=== PATIENT | female | born 1935 | race Caucasian/White ===

== ENCOUNTER 2016-10-16 16:44 | Emergency (ER) | payer MEDICARE, OTHER ==
[~2016-10-16] VITALS: Ht 152.4 cm; Wt 61.7 kg
[~2016-10-16 16:44] MED LIST: AMLODIPINE BESYL5 M1 PO; AMLODIPINE5 MG PO; CLONIDINE HCL0.1 M1 PO; FLAGYL250 MG PO; GLUCOVANCE 5 MG1 TAB PO; JANUVIA100 MG PO; JANUVIA50 MG PO; LANTUS INS100 UNITS/ SUBQ; LEVAQUIN250 MG PO; LEVAQUIN500 MG PO; LISINOPRIL40 M1 PO; LISINOPRIL40 MG PO; LOMOTIL 0.025 M1 TA1 PO; MECLIZINE HCL25 M2 PO; METFORMIN500 MG PO; MOTRIN400 MG PO; NEURONTIN100 MG PO; NEXUIM; NORVASC5 MG PO; PRILOSEC40 MG PO; ROCEPHIN1 G1 IV; SIMVASTATIN20 M1 PO; SULFAMETH/TRIME1 TA1 PO; ZESTRIL30 MG PO; ZOCOR20 MG PO; [UNRECOGNIZED DRUG - REMARK]; [UNRECOGNIZED DRUG - REMARK]
[2016-10-16 17:10] VITALS: BP 153/55
--- NOTE | 2016-10-16 17:31 | NUR ---
PT TO BED 5 AT THIS TIME.
--- NOTE | 2016-10-16 17:35 | NUR ---
81/M BIB [facility] FOR C/O DYSURIA X 5 DAYS. HX OF DM, HTN, UNSTEADY GAIT, HARD OF HEARING. RX INSULIN. URINE GIVEN.
--- NOTE | 2016-10-16 17:39 | NUR ---
Patient being evaluated by physician at bedside.
[2016-10-16 18:30] VITALS: BP 149/58
--- NOTE | 2016-10-16 18:30 | NUR ---
Patient discharged with v/s stable. Written and verbal after care instructions given and explained. Patient alert, oriented and PT AND [facility] verbalized understanding of instructions. Ambulatory with steady gait. All questions addressed prior to discharge. ID band removed. Patient advised to follow up with PMD. Rx of BACTRIM given. Patient educated on indication of medication including possible reaction and side effects. Opportunity to ask questions provided and answered.
[2016-10-23] MEDS ORDERED: LEVAQUIN750 MG PO (08:18)
== END 2016-10-16 18:30 | disposition home or self-care (01) ==
LOC: MED 16:49
DX: N39.0 Urinary tract infection, site not specified (principal); I12.0 Hypertensive chronic kidney disease with stage 5 chronic kidney disease or end stage renal disease; N18.6 End stage renal disease; E11.9 Type 2 diabetes mellitus without complications; Z88.5 Allergy status to narcotic agent; Z79.899 Other long term (current) drug therapy

== ENCOUNTER 2016-10-21 14:51 | Inpatient (IN) | payer OTHER, MEDICARE ==
[~2016-10-21] VITALS: Ht 149.9 cm; Wt 63.5 kg
[~2016-10-21 14:51] MED LIST changes: +AMLO5TAB4 PO; -AMLODIPINE BESYL5 M1 PO; -AMLODIPINE5 MG PO; +CLON0.1T15 PO; -CLONIDINE HCL0.1 M1 PO; -FLAGYL250 MG PO; -GLUCOVANCE 5 MG1 TAB PO; -JANUVIA100 MG PO; -JANUVIA50 MG PO; -LANTUS INS100 UNITS/ SUBQ; -LEVAQUIN250 MG PO; -LEVAQUIN500 MG PO; +LEVO500T6 PO; +LISI30TA6 PO; -LISINOPRIL40 M1 PO; -LISINOPRIL40 MG PO; -LOMOTIL 0.025 M1 TA1 PO; -MECLIZINE HCL25 M2 PO; -METFORMIN500 MG PO; -MOTRIN400 MG PO; -NEURONTIN100 MG PO; -NEXUIM; -NORVASC5 MG PO; -PRILOSEC40 MG PO; -ROCEPHIN1 G1 IV; +SIMV20TA1 PO; -SIMVASTATIN20 M1 PO; +SITA50TA3 PO; -SULFAMETH/TRIME1 TA1 PO; -ZESTRIL30 MG PO; -ZOCOR20 MG PO; -[UNRECOGNIZED DRUG - REMARK]; -[UNRECOGNIZED DRUG - REMARK]
[2016-10-21 15:18] VITALS: BP 129/51
--- NOTE | 2016-10-21 16:17 | NUR ---
Patient taken to bed 07 via wheelchair per family member.
--- NOTE | 2016-10-21 16:23 | NUR ---
Dr. Garzon evaluating patient at bedside.
[2016-10-21] MEDS ORDERED: ONDANSETRON 4 MG ODT PO ONE (16:30)
[2016-10-21] MEDS ORDERED: NACL 0.9% 1,000 ML IV ONE (16:30)
--- NOTE | 2016-10-21 16:34 | NUR ---
XRAY at bedside.
--- NOTE | 2016-10-21 16:40 | NUR ---
X-Ray at bedside.
[2016-10-21 16:50] LABS: BASOPHILS # (AUTO) 0.4 K/uL (0.00-0.22); BASOPHILS % (AUTO) 4.3 % (0.0-2.0); EOSINOPHILS # (AUTO) 0.2 K/uL (0-0.4); HEMATOCRIT 34.8 % (36-48); HEMOGLOBIN 10.7 g/dL (12.0-16.0); LYMPHOCYTES # (AUTO) 1.3 K/uL (2.5-16.5); LYMPHOCYTES % (AUTO) 14.4 % (20.5-51.1); MEAN CORPUSCULAR HEMOGLOBIN 27 pg (27-31); MEAN CORPUSCULAR HGB CONC 31 g/dL (33-37); MEAN CORPUSCULAR VOLUME 89 fL (80-94); MONOCYTES # (AUTO) 0.4 K/uL (0.8-1.0); MONOCYTES % (AUTO) 3.8 % (1.7-9.3); NEUTROPHILS % (AUTO) 75.5 % (42.2-75.2); PLATELET COUNT (AUTO) 202 K/uL (140-450); RED BLOOD CELL COUNT(AUTO) 3.89 MIL/uL (4.20-5.40); RED CELL DISTRIBUTION WIDTH 13.3 % (11.6-13.7); WHITE BLOOD COUNT (AUTO) 9.3 K/uL (4.8-10.8)
[2016-10-21 17:10] LABS: INR 1.1 (0.8-1.2); PROTHROMBIN TIME 10.4 secs (10.8-13.4)
[2016-10-21 17:12] LABS: ALANINE AMINOTRANSFERASE 19 U/L (12-78); ALBUMIN 3.8 g/dL (3.4-5.0); ALKALINE PHOSPHATASE 71 U/L (46-116); ANION GAP 13.9 (8-16); ASPARTATE AMINOTRANSFERASE 15 U/L (15-37); CALCIUM 9.2 mg/dL (8.5-10.1); CARBON DIOXIDE 25.9 mmol/L (21-32); CHLORIDE 102 mmol/L (98-107); CREATININE 1.5 mg/dL (0.6-1.3); GLUCOSE 223 mg/dL (74-106); POTASSIUM 5.8 mmol/L (3.5-5.1); SODIUM SERUM 136 mmol/L (136-145); TOTAL BILIRUBIN 0.5 mg/dL (0.0-1.0); TOTAL PROTEIN, SERUM 7.6 g/dL (6.4-8.2); UREA NITROGEN, BLOOD 24 mg/dL (7-18)
[2016-10-21] MEDS ORDERED: cefTRIAXone 1,000 MG VIAL ONE (17:12)
[2016-10-21 17:15] LABS: CREATINE KINASE MB 0.6 ng/mL (0-3.6)
[2016-10-21] MEDS ORDERED: SODIUM POLYSTYRENE 15 GM/60 ML UDBTL PO ONE (17:20)
[2016-10-21 17:22] LABS: LACTIC ACID 1.9 mmol/L (0.4-2.0)
[2016-10-21] MEDS: NACL 0.9% 1,000 ML IV SCH (17:27)
[2016-10-21] MEDS ORDERED: DEXTROSE 50% 50 ML SYR IVP PRN (17:30)
[2016-10-21] MEDS ORDERED: ONDANSETRON 4 MG/2 ML VIAL IVP PRN (17:30)
[2016-10-21] MEDS ORDERED: ALBUTEROL 0.083% 2.5 MG/3 ML NEBU IH PRN (17:30)
[2016-10-21] MEDS ORDERED: HYDROcodone/APAP 5/325 MG 1 TAB TAB PO PRN (17:30)
--- NOTE | 2016-10-21 17:33 | NUR ---
Patient appears to be resting comfortably in bed. Vital Signs within normal limits. Respirations even and unlabored.
--- NOTE | 2016-10-21 17:39 | NUR ---
Patient will be admitted to care of Dr. Mejia. Admited to TELE. Will go to room 121-B. Belongings list completed. Report to Marleni LAGUNAS.
--- NOTE | 2016-10-21 17:56 | NUR ---
Patient being taken to TELE via gurney per tech/nurse.
--- NOTE | 2016-10-21 18:06 | NUR ---
RECEIVED PT ON UNIT FROM ER VIA CYNTHIA, PT IS A/OX4, AMBULATES WITH ASSIST, SKIN IS INTACT, IV IS ON RT FA, PATENT AND INTACT, NO S/S OF RESPIRATORY DISTRESS OR DISCOMFORT NOTED, FALL/SAFETY PRECAUTIONS IN PLACE, ORIENTED PT TO ROOM, CALL LIGHT WITHIN REACH, WILL CONTINUE TO MONITOR.
[2016-10-21 19:08] VITALS: BP 164/65
--- NOTE | 2016-10-21 19:20 | NUR ---
ENDORSED PT TO JANNETH ROBB. FOR CONTINUITY OF CARE, PT STABLE AT THIS TIME.
--- NOTE | 2016-10-21 19:25 | NUR ---
RECEIVED FROM AM RN IN BED. NEWLY ADMITTED PT. DAUGHTER AT BEDSIDE. NO COMPLAINTS DONE AT THIS TIME. AFEBRILE. ABLE TO VERBALIZE NEEDS WELL. MEDICAL SURGICAL PT. DX. PNA. IVF SITE TO LFA#20 WITH 100 ML OF NS PER HOUR. PATENT AND NO INFILTRATION NOTED. CALL LIGHT WITH IN REACH. RE-ORIENTED TO CALL LIGHT USE. BED ALARM ON AND CARE PLAN FOR THE NIGHT DISCUSSED WITH DAUGHTER AND PT. ENCOURAGED TO CALL FOR ANY HELP SHE MAY NEED. "OK". BILATERAL SEQUENTIALS IN PLACE.
[2016-10-21] MEDS: BLOOD GLUCOSE MONITORING 1 DEV DEV FS SCH (20:42)
[2016-10-21] MEDS: AZITHROMYCIN 500 MG in DEXTROSE 5% 250 ML IV SCH (20:44)
[2016-10-21] MEDS: INSULIN LISPRO SLIDING SCALE 100 UNITS/ML VIAL SUBQ PRN (20:48)
--- NOTE | 2016-10-21 20:56 | NUR ---
ZITHROMAX IVP INFUSED ORDERED. HUMALOG INSULIN COVERAGE 2 UNITS GIVEN FOR 166 MG/DL OF BLOOD SUGAR RESULT PER FINGERSTICK. A/O X 4. CLEAR SPEECH. NO COMPLAINTS DONE. RE-ORIENTED TO CALL LIGHT USE FOR EMETERIO HELP SHE MAY NEED OR IF IN PAIN.
[2016-10-21 23:06] VITALS: BP 135/64
--- NOTE | 2016-10-21 23:52 | NUR ---
MRSA NARES SWAB TAKEN AND SENT TO LAB FOR PROCESSING. NO COMPLAINTS DONE. CALL LIGHT WITH IN REACH. REMINDED TO COUGH IN SPUTUM CUP AND THAT WE NEED TO HAVE URINE SAMPLE TOO. AWARE. INFORMED DEVELOPMENT TECHNICAL LEAD THAT WE NEED URINE.
[2016-10-22] MEDS: NACL 0.9% 1,000 ML IV SCH ×3 (03:27→23:35)
--- NOTE | 2016-10-22 04:00 | NUR ---
ASSISTED BY CHIP SILO TENDER IN URINATING. PROVIDED WITH BEDPAN. NO COMPLAINTS DONE. NO SOB. AFEBRILE.
[2016-10-22] MEDS: BLOOD GLUCOSE MONITORING 1 DEV DEV FS SCH ×4 (05:54→21:20)
[2016-10-22] MEDS: INSULIN LISPRO SLIDING SCALE 100 UNITS/ML VIAL SUBQ PRN ×3 (05:56→21:27)
[2016-10-22 05:58] LABS: BASOPHILS # (AUTO) 0.1 K/uL (0.00-0.22); BASOPHILS % (AUTO) 1.4 % (0.0-2.0); EOSINOPHILS # (AUTO) 0.3 K/uL (0-0.4); EOSINOPHILS % (AUTO) 3.1 % (0.0-4.0); HEMOGLOBIN 10.7 g/dL (12.0-16.0); LYMPHOCYTES # (AUTO) 2.3 K/uL (2.5-16.5); LYMPHOCYTES % (AUTO) 28.7 % (20.5-51.1); MEAN CORPUSCULAR HEMOGLOBIN 29 pg (27-31); MEAN CORPUSCULAR HGB CONC 32 g/dL (33-37); MEAN CORPUSCULAR VOLUME 91 fL (80-94); MONOCYTES # (AUTO) 0.6 K/uL (0.8-1.0); MONOCYTES % (AUTO) 7.5 % (1.7-9.3); NEUTROPHILS # (AUTO) 4.8 K/uL (1.8-7.7); NEUTROPHILS % (AUTO) 59.3 % (42.2-75.2); PLATELET COUNT (AUTO) 198 K/uL (140-450); RED BLOOD CELL COUNT(AUTO) 3.64 MIL/uL (4.20-5.40); RED CELL DISTRIBUTION WIDTH 13.5 % (11.6-13.7); WHITE BLOOD COUNT (AUTO) 8.1 K/uL (4.8-10.8)
--- NOTE | 2016-10-22 06:40 | NUR ---
SLEPT WELL THIS SHIFT. NEEDS MET. VERBALIZES SIMPLE NEEDS IN [place]. NO SOB THIS SHIFT. NO COMPLAINTS DONE.
[2016-10-22 07:09] LABS: ANION GAP 12.2 (8-16); CALCIUM 8.4 mg/dL (8.5-10.1); CHLORIDE 106 mmol/L (98-107); GLUCOSE 153 mg/dL (74-106); POTASSIUM 4.2 mmol/L (3.5-5.1); SODIUM SERUM 141 mmol/L (136-145)
[2016-10-22 07:10] LABS: CREATININE 1.2 mg/dL (0.6-1.3); UREA NITROGEN, BLOOD 20 mg/dL (7-18)
--- NOTE | 2016-10-22 07:30 | NUR ---
RECEIVED REPORT FROM NIGHT NURSE. PT AOX4, ABLE TO VERBALIZE NEEDS. NO CP, SOB OR S/S OF ACUTE DISTRESS. INITIAL ASSESSMENT COMPLETED. PT REMINDED TO USE THE CALL LIGHT TO CALL TO USE BEDPAN TO COLLECT URINE SAMPLE AND ALSO TO CALL TO COLLECT FOR SPUTUM SAMPLE. IV ACCESS, PATENT AND INTACT. IVF INFUSING WELL. DISCUSSED AND REVIEWED PLAN OF CARE WITH PT. PT VERBALIZES UNDERSTANDING. SAFETY MEASURES ENSURED. CALL LIGHT WITHIN REACH. WILL CONTINUE TO MONITOR.
--- NOTE | 2016-10-22 07:33 | NUR ---
ENDORSED TO THE NEXT RN FOR CONTINUITY OF CARE AWAKE AND ALERT.
[2016-10-22 08:00] VITALS: BP 124/61
[2016-10-22] MEDS: ENOXAPARIN 30 MG/0.3 ML SYR SUBQ SCH (09:23)
--- NOTE | 2016-10-22 09:28 | NUR ---
ADMINISTERED MEDICATION WITH EDUCATION, PT VERBALIZES UNDERSTANDING. PT TOLERATED WELL. IVF INFUSING WELL. ASSISTED PT TO BEDPAN. SAFETY MEASURES ENSURED. WILL CONTINUE TO MONITOR.
--- NOTE | 2016-10-22 09:40 | NUR ---
CM NOTE INITIAL REVIEW SENT TO [facility] FAX# [phone] PH# KELLI [phone]
--- NOTE | 2016-10-22 10:25 | NUR ---
PATIENT HAS BEEN SCREENED AND CATEGORIZED HIGH NUTRITION RISK. PATIENT WILL BE SEEN WITHIN 1-2 DAYS OF ADMISSION. 10/22/16-10/23/[address]
--- NOTE | 2016-10-22 12:30 | NUR ---
MEDICATION ADMINISTERED WITH EDUCATION, PT VERBALIZES UNDERSTANDING. PT TOLERATED MEDS WELL. IVF INFUSING WELL. PT EATING INDEPENDENTLY IN HIGH FOWLERS. ALL NEEDS MET. CALL LIGHT WITHIN REACH. WILL CONTINUE TO MONITOR.
[2016-10-22 13:15] LABS: BILIRUBIN,URINE NEGATIVE (NEGATIVE); BLOOD, URINE NEGATIVE (NEGATIVE); COLOR,URINE YELLOW (YELLOW); LEUKOCYTE ESTERASE ,URINE NEGATIVE (NEGATIVE); PH,URINE 5.5 (5.0-9.0); PROTEIN,URINE NEGATIVE (NEGATIVE); UGLUCOSE NEGATIVE (NEGATIVE); UROBILINOGEN,URINE 0.2 EU/dL (0.2 - 1)
[2016-10-22 13:23] LABS: APPEARANCE,URINE SLIGHTLY HAZY (CLEAR); NITRITE, URINE POSITIVE (NEGATIVE); RBC,URINE 0-5 (RARE) /HPF (0-5); WBC,URINE 0-5 (RARE) /HPF (0-5)
[2016-10-22 13:24] LABS: BACTERIA,URINE 1+ /HPF (None Seen)
--- NOTE | 2016-10-22 15:26 | NUR ---
10/22/16 RD INITIAL ASSESSMENT COMPLETED PLEASE REFER TO NUTRITION ASSESSMENT UNDER CARE ACTIVITY FOR ESTIMATED NUTRITIONAL NEEDS. 1. CONTINUE 60 GM CONSISTENT CARBOHYDRATE DIET 2. RD TO FOLLOW-UP 3-5 DAYS; MODERATE RISK ROBINA FOWLER RD
[2016-10-22 16:00] VITALS: BP 114/43
[2016-10-22] MEDS: ACETAMINOPHEN 325 MG TAB PO PRN (17:04)
--- NOTE | 2016-10-22 17:04 | NUR ---
MEDICATIONS ADMINISTERED WITH EDUCATION. PT VERBALIZES UNDERSTANDING. IVF INFUSING WELL. ALL NEEDS MET. SAFETY MEASURES ENSURED. WILL CONTINUE TO MONITOR.
[2016-10-22] MEDS: AZITHROMYCIN 500 MG in DEXTROSE 5% 250 ML IV SCH (18:19)
--- NOTE | 2016-10-22 19:30 | NUR ---
RECEIVED REPORT FROM DAY RN AT BEDSIDE, PATIENT IS AAO X4 RESTING IN BED WITH FAMILY AT BEDSIDE, ON ROOM AIR, NO SOB OR SIGN OF DISTRESS AT THIS TIME, IV TO LEFT FOREARM PATENT AND INTACT WITH IVF INFUSING WELL. SKIN INTACT, DISCUSSED PLAN OF CARE WITH PATIENT , PATIENT VERBALIZED UNDERSTANDING, SAFETY MEASURES CHECKED, CALL LIGHT WITHIN REACH. WILL CONTINUE TO MONITOR.
--- NOTE | 2016-10-22 19:40 | NUR ---
ENDORSED PLAN OF CARE TO TEA ROOM MANAGER NURSE. CONDITION STABLE.
--- NOTE | 2016-10-22 23:30 | NUR ---
PATIENT PUSHED CALL LIGHT STATING SHE "DIDNT FEEL RIGHT" PATIENT STATED SHE FELT SWEATY AND HOT, CHECKED BLOOD SUGAR WAS 36, GAVE PATIENT D50 PER MD ORDER AND TWO JUICE BOXES. PATIENT ALERT AND RESPONSIVE. WILL CONTINUE TO MONITOR AND RE CHECK BLOOD SUGAR.
--- NOTE | 2016-10-22 23:50 | NUR ---
RE CHECK BS, INCREASED TO 208, PATIENT RESTING COMFORTABLE IN BED, WILL CONTINUE TO MONITOR
[2016-10-23] VITALS: BP 126/55
--- NOTE | 2016-10-23 00:10 | NUR ---
VITAL SIGNS STABLE, NO SOB OR SIGN OF DISTRESS, CALL LIGHT WITHIN REACH. WILL CONTINUE TO MONITOR.
--- NOTE | 2016-10-23 02:15 | NUR ---
PATIENT SLEEPING COMFORTABLE, NO SOB OR SIGN OF DISTRESS AT THIS TIME, CALL LIGHT WITHIN REACH. WILL CONTINUE TO MONITOR.
--- NOTE | 2016-10-23 04:30 | NUR ---
PATIENT SLEEPING, NO SIGN OF DISTRESS, CALL LIGHT WITHIN REACH. WILL CONTINUE TO MONITOR.
--- NOTE | 2016-10-23 06:30 | NUR ---
BS CHECK 175, PATIENT AGREED TO NO INSULIN, PATIENT STATED SHE "DID NOT WANT IT TO GO DOWN AGAIN."
[2016-10-23] MEDS: BLOOD GLUCOSE MONITORING 1 DEV DEV FS SCH ×3 (06:42→17:19)
--- NOTE | 2016-10-23 07:30 | NUR ---
ENDORSED PATIENT TO DAY RN AT BEDSIDE, PATIENT IN STABLE CONDITION
--- NOTE | 2016-10-23 07:31 | NUR ---
RECEIVED REPORT FROM NIGHT NURSE. PT AOX4, ABLE TO VERBALIZE NEEDS, HARD AT HEARING. NO CP, SOB OR S/S OF ACUTE DISTRESS. ASSISTED PT TO BEDPAN, PT TOLERATED WELL. DISCUSSED AND REVIEWED PLAN OF CARE WITH PT, PT VERBALIZES UNDERSTANDING. IV ACCESS ASYMPTOMATIC, PATENT AND INTACT. IVF INFUSING WELL. SAFETY MEASURES ENSURED. CALL LIGHT WITHIN REACH WILL CONTINUE TO MONITOR.
[2016-10-23 08:00] VITALS: BP 142/58
[2016-10-23] MEDS ORDERED: LEVO750T2 PO (08:18)
[2016-10-23] MEDS: ENOXAPARIN 30 MG/0.3 ML SYR SUBQ SCH (08:48)
--- NOTE | 2016-10-23 08:51 | NUR ---
LOVENOX ADMINISTERED WITH EDUCATION, PT VERBALIZES UNDERSTANDING. PT TOLERATED WELL. CONDITION STABLE. ALL NEEDS MET. SAFETY MEASURES ENSURED. CALL LIGHT WITHIN REACH. WILL CONTINUE TO MONITOR. PT NOTIFIED OF DISCHARGE TODAY, PT STATED THAT HER CAREGIVER CAN PICK HER UP AT 1900. ASKED IF ANYONE ELSE CAN PICK HER UP EARLIER, PT STATED NO. WILL CALL PT'S SEAM RUBBER TO SEE FOR EARLIER DISCHARGE.
--- NOTE | 2016-10-23 08:56 | NUR ---
ASSISTED PT TO RESTROOM. PT ABLE TO AMBULATE WELL WITH MINIMUM ASSISTANCE. PT TOLERATED WELL. PT'S BED LINEN CHANGED. SAFETY MEASURES ENSURED. CALL LIGHT WITHIN REACH. WILL CONTINUE TO MONITOR.
--- NOTE | 2016-10-23 09:00 | NUR ---
CALLED TERESA ROSEN, PT'S DAUGHTER'S NUMBER REGARDING DISCHARGE. NO ANSWER, NO VOICEMAIL. WILL CONTINUE TO CALL.
[2016-10-23] MEDS: NACL 0.9% 1,000 ML IV SCH (09:27)
[2016-10-23 09:32] VITALS: BP 142/58
--- NOTE | 2016-10-23 09:48 | NUR ---
CM NOTE CONCURRENT REVIEW SENT TO [facility] FAX# [phone] PH# KELLI [phone]
--- NOTE | 2016-10-23 10:49 | NUR ---
CALLED TERESA ROSEN, PT'S DAUGHTER'S NUMBER AGAIN REGARDING DISCHARGE. NO ANSWER, NO VOICEMAIL. WILL CONTINUE TO CALL. ASKED PT FOR ANOTHER NUMBER OF DAUGHTER. PT STATED THAT SHE HAS ALREADY TALKED TO DAUGHTER, STATING THAT SHE WILL BE PICKED UP BY HER DAUGHTER AT 1900. ASKED PT IF ANYONE ELSE CAN PICK HER UP FOR DISCHARGE. PT STATED "NO, EVERYONE IS WORKING." WILL CONTINUE TO FOLLOW UP. CONDITION STABLE. IVF INFUSING WELL. SAFETY MEASURES ENSURED. WILL CONTINUE TO MONITOR.
--- NOTE | 2016-10-23 12:00 | NUR ---
PT EATING INDEPENDENTLY. ALL NEEDS MET. IVF INFUSING WELL. SAFETY MEASURES ENSURED. CALL LIGHT WITHIN REACH. WILL CONTINUE TO MONITOR.
[2016-10-23] MEDS: INSULIN LISPRO SLIDING SCALE 100 UNITS/ML VIAL SUBQ PRN ×2 (12:15→17:17)
[2016-10-23] MEDS: ACETAMINOPHEN 325 MG TAB PO PRN (15:22)
[2016-10-23 16:00] VITALS: BP 142/66
--- NOTE | 2016-10-23 16:00 | NUR ---
CONDITION STABLE. ALL NEEDS MET. SAFETY MEASURES ENSURED.
--- NOTE | 2016-10-23 16:30 | NUR ---
RECEIVED CALL FROM PT'S DAUGHTER STATING THAT SHE WILL BE ABLE TO COLLECTOR OF INTERNAL REVENUE PT AT 1830.
--- NOTE | 2016-10-23 17:00 | NUR ---
DUE MEDICATIONS GIVEN WITH EDUCATION. PT VERBALIZES UNDERSTANDING. PT TOLERATED WELL. IVF INFUSING WELL. SAFETY MEASURES ENSURED. ALL NEEDS MET. WILL CONTINUE TO MONITOR.
--- NOTE | 2016-10-23 18:30 | NUR ---
DISCUSSED AND REVIEWED DISCHARGE INSTRUCTIONS WITH PT. PT VERBALIZES UNDERSTANDING. BELONGINGS CHECKED. IV ACCESS REMOVED, CANNULA INTACT. PT TOLERATED WELL. CONDITION STABLE. ALL NEEDS MET.
--- NOTE | 2016-10-23 19:25 | NUR ---
PT DISCHARGED THROUGH WHEELCHAIR BY [employer] LAUNCH COMMANDER, ACCOMPANIED BY PT'S DAUGHTER. CONDITION STABLE.
== END 2016-10-23 19:25 | disposition home or self-care (01) | DRG 139 ==
LOC: MED 14:51 → MTU 17:36
PROVIDERS: ADMIT Hospitalist; ATTEND Hospitalist
DX: J18.9 Pneumonia, unspecified organism (principal); N18.6 End stage renal disease; E11.22 Type 2 diabetes mellitus with diabetic chronic kidney disease; I12.0 Hypertensive chronic kidney disease with stage 5 chronic kidney disease or end stage renal disease; E86.0 Dehydration; E87.5 Hyperkalemia; E78.00 Pure hypercholesterolemia, unspecified; E78.5 Hyperlipidemia, unspecified; Z88.5 Allergy status to narcotic agent; Z79.899 Other long term (current) drug therapy; Z98.51 Tubal ligation status; Z90.710 Acquired absence of both cervix and uterus; Z90.49 Acquired absence of other specified parts of digestive tract
CPT/HCPCS: 36415; 71010; 80048; 80053; 81001; 82550; 82553; 82948; 83605; 83735; 84484; 85025; 85610; 85730; 87040; 87081; 87086; 93005; 99285; J0456; J0696; J1650; J1815; J7030; J7060; S0119

== ENCOUNTER 2017-06-06 17:33 | Inpatient (IN) | payer OTHER, MEDICARE ==
[~2017-06-06] VITALS: Ht 152.4 cm; Wt 64.4 kg
[~2017-06-06 17:33] MED LIST changes: -LEVO500T6 PO; +LEVO750T2 PO
[2017-06-06 17:39] VITALS: BP 149/85
--- NOTE | 2017-06-06 17:42 | NUR ---
PT AA&OX4 AT THIS TIME. STEADY GAIT. RR EVEN AND UNLABORED. PT TO LOBBY AWAITING OPEN BED AT THIS TIME.
[2017-06-06] MEDS ORDERED: NACL 0.9% 500 ML IV ONE (17:57)
[2017-06-06] MEDS ORDERED: KETOROLAC 30 MG/ML VIAL IVP ONE (18:00)
[2017-06-06] MEDS ORDERED: ONDANSETRON 4 MG/2 ML VIAL IVP ONE (18:00)
[2017-06-06 18:32] LABS: BASOPHILS # (AUTO) 0.3 K/uL (0.00-0.22); BASOPHILS % (AUTO) 3.9 % (0.0-2.0); EOSINOPHILS # (AUTO) 0.4 K/uL (0-0.4); EOSINOPHILS % (AUTO) 4.8 % (0.0-4.0); HEMATOCRIT 37.3 % (36-48); HEMOGLOBIN 12.4 g/dL (12.0-16.0); LYMPHOCYTES # (AUTO) 1.4 K/uL (2.5-16.5); LYMPHOCYTES % (AUTO) 16.6 % (20.5-51.1); MEAN CORPUSCULAR HEMOGLOBIN 30 pg (27-31); MEAN CORPUSCULAR HGB CONC 33 g/dL (33-37); MEAN CORPUSCULAR VOLUME 91 fL (80-94); MONOCYTES # (AUTO) 0.5 K/uL (0.8-1.0); MONOCYTES % (AUTO) 5.8 % (1.7-9.3); NEUTROPHILS # (AUTO) 5.9 K/uL (1.8-7.7); NEUTROPHILS % (AUTO) 68.9 % (42.2-75.2); PLATELET COUNT (AUTO) 253 K/uL (140-450); RED BLOOD CELL COUNT(AUTO) 4.09 MIL/uL (4.20-5.40); RED CELL DISTRIBUTION WIDTH 13.4 % (11.6-13.7); WHITE BLOOD COUNT (AUTO) 8.5 K/uL (4.8-10.8)
[2017-06-06 18:41] LABS: CARBON DIOXIDE 26.4 mmol/L (21-32); CHLORIDE 105 mmol/L (98-107); CREATININE 1.6 mg/dL (0.6-1.3); GLUCOSE 343 mg/dL (74-106); POTASSIUM 4.4 mmol/L (3.5-5.1); SODIUM SERUM 142 mmol/L (136-145); UREA NITROGEN, BLOOD 25 mg/dL (7-18)
[2017-06-06 18:47] LABS: ALBUMIN 3.8 g/dL (3.4-5.0); ASPARTATE AMINOTRANSFERASE 12 U/L (15-37); PROTHROMBIN TIME 10.1 secs (10.8-13.4); TOTAL BILIRUBIN 0.3 mg/dL (0.0-1.0)
--- NOTE | 2017-06-06 18:57 | NUR ---
Patient to bed 11.
--- NOTE | 2017-06-06 19:05 | NUR ---
81 Y/O F BIB FAMILY WITH THE COMPLAIN OF R FLANK/R ABD PAIN X 1WK. DAUGHTER STATES PT WAS SEEN BY PMD AND SENT HOME WITH CIPRO FOR UTI, BUT NOW PT HAS R FLANK PAIN. PT DENIES ANY FEVER OR CHILLS. ER MD MADE AWARE.
--- NOTE | 2017-06-06 19:20 | NUR ---
KUSUM TRACEY AT BEDSIDE EVALUATING PT.
[2017-06-06 20:22] LABS: APPEARANCE,URINE SL CLOUDY (CLEAR); BILIRUBIN,URINE NEGATIVE (NEGATIVE); BLOOD, URINE 2+ (NEGATIVE); COLOR,URINE YELLOW (YELLOW); LEUKOCYTE ESTERASE ,URINE 1+ (NEGATIVE); NITRITE, URINE NEGATIVE (NEGATIVE); UGLUCOSE 1+ (NEGATIVE)
[2017-06-06 20:32] LABS: RBC,URINE 11-20 (MOD) /HPF (0-5); WBC,URINE 80-100 /HPF (0-5)
[2017-06-06] MEDS ORDERED: NACL 0.9% 1,000 ML IV ONE (20:55)
[2017-06-06] MEDS ORDERED: cefTRIAXone 1,000 MG VIAL ONE (21:20)
--- NOTE | 2017-06-06 21:56 | NUR ---
PT TRANSFERRED TO FLOOR VIA WHEELCHAIR. ACCOMPANIED BY ME. NO S/S OF DISTRESS NOTED DURING TRANSPORT.
--- NOTE | 2017-06-06 21:59 | NUR ---
Patient will be admitted to care of DR FOX. Admited to MED SURG. Will go to room 110B. Belongings list completed. Report to JANNETH PRATER.
--- NOTE | 2017-06-06 22:00 | NUR ---
ADMITTED PATIENT TO THE MED-SURG UNIT, PATIENT AWAKE ALERT ORIENTED X3, NO S/S OF DISTRESS NOTED, RESPIRATION EVEN AND UNLABORED, IV PATENT AND INTACT, PLAN OF CARE DISCUSSED, PATIENT VERBALIZED, UNDERSTANDING, CALL LIGHT WITHIN REACH, SAFETY MEASURE ENSURED, WILL CONTINUE TO MONITOR.
[2017-06-06 22:05] VITALS: BP 144/68
[2017-06-06] MEDS ORDERED: ACETAMINOPHEN 325 MG TAB PO PRN (22:10)
[2017-06-06] MEDS ORDERED: ONDANSETRON 4 MG/2 ML VIAL IVP PRN (22:10)
--- NOTE | 2017-06-07 00:56 | NUR ---
PATIENT IS SLEEPING AT THIS TIME, NO S/S OF DISTRESS NOTED, RESPIRATION EVEN AND UNLABORED, CALL LIGHT WITHIN REACH, SAFETY MEASURE ENSURED, WILL CONTINUE TO MONITOR.
--- NOTE | 2017-06-07 02:19 | NUR ---
NO CHANGE IN CONDITION, PATIENT IS SLEEPING AT THIS TIME, RESPIRATION EVEN AND UNLABORED, CALL LIGHT WITHIN REACH, SAFETY MEASURE ENSURED, WILL CONTINUE TO MONITOR.
[2017-06-07] MEDS ORDERED: DEXTROSE 50% 50 ML SYR IVP PRN (03:10)
--- NOTE | 2017-06-07 04:22 | NUR ---
PATIENT IS SLEEPING AT THIS TIME, RESPIRATION EVEN AND UNLABORED, CALL LIGHT WITHIN REACH, SAFETY MEASURE ENSURED, WILL CONTINUE TO MONITOR.
--- NOTE | 2017-06-07 06:22 | NUR ---
NO CHANGE IN CONDITION, PATIENT IS SLEEPING AT THIS TIME, RESPIRATION EVEN AND UNLABORED, CALL LIGHT WITHIN REACH, SAFETY MEASURE ENSURED, WILL CONTINUE TO MONITOR.
[2017-06-07] MEDS: BLOOD GLUCOSE MONITORING 1 DEV DEV FS SCH ×4 (06:32→20:32)
[2017-06-07 07:07] LABS: BASOPHILS # (AUTO) 0.2 K/uL (0.00-0.22); BASOPHILS % (AUTO) 3.3 % (0.0-2.0); EOSINOPHILS # (AUTO) 0.6 K/uL (0-0.4); EOSINOPHILS % (AUTO) 7.7 % (0.0-4.0); HEMATOCRIT 31.8 % (36-48); HEMOGLOBIN 10.5 g/dL (12.0-16.0); LYMPHOCYTES # (AUTO) 1.9 K/uL (2.5-16.5); LYMPHOCYTES % (AUTO) 26.4 % (20.5-51.1); MEAN CORPUSCULAR HEMOGLOBIN 30 pg (27-31); MEAN CORPUSCULAR HGB CONC 33 g/dL (33-37); MEAN CORPUSCULAR VOLUME 91 fL (80-94); MONOCYTES # (AUTO) 0.5 K/uL (0.8-1.0); MONOCYTES % (AUTO) 6.5 % (1.7-9.3); NEUTROPHILS # (AUTO) 4.2 K/uL (1.8-7.7); NEUTROPHILS % (AUTO) 56.1 % (42.2-75.2); PLATELET COUNT (AUTO) 213 K/uL (140-450); RED BLOOD CELL COUNT(AUTO) 3.52 MIL/uL (4.20-5.40); RED CELL DISTRIBUTION WIDTH 13.4 % (11.6-13.7); WHITE BLOOD COUNT (AUTO) 7.4 K/uL (4.8-10.8)
--- NOTE | 2017-06-07 07:20 | NUR ---
ENDORSED PLAN OF CARE TO DAY RN, PATIENT RESTING IN BED, NO S/S OF DISTRESS, PATIENT IS IN STABLE CONDITION.
--- NOTE | 2017-06-07 07:36 | NUR ---
ENDORSEMENT RECEIVED FROM IT SECURITY ENGINEER NURSE. PATIENT IS SLEEPING COMFORTABLY. RESPIRATION EVEN, UNLABOR. SKIN DRY AND WARM. BED AT LOW POSITION. NO DISTRESS NOTED AT THIS TIME. CALL LIGHT WITHIN REACH. WILL CONTINUE TO MONITOR
[2017-06-07 08:00] VITALS: BP 143/60
--- NOTE | 2017-06-07 08:54 | NUR ---
PATIENT HAS BEEN SCREENED AND CATEGORIZED MODERATE NUTRITION RISK. PATIENT WILL BE SEEN WITHIN 3-5 DAYS OF ADMISSION. 06/09/17-06/11/[address]
[2017-06-07] MEDS: cloNIDine 0.1 MG TAB PO SCH ×5 (09:00→17:00)
[2017-06-07] MEDS: amLODIPine 5 MG TAB PO SCH (09:30)
[2017-06-07] MEDS: LISINOPRIL 10 MG TAB PO SCH (09:30)
[2017-06-07] MEDS: ENOXAPARIN 30 MG/0.3 ML SYR SUBQ SCH (09:39)
--- NOTE | 2017-06-07 10:20 | NUR ---
RECEIVED PT IN STABLE CONDITION FROM AM NURSE. AWAKE,ALERT AND ORIENTED X3, WITH PERIODS OF FORGETFULNESS. ON MED LYDIA. DAUGHTER AT BEDSIDE. HAS IVF INFUSING WELL ON THE LT AC#22. PLAN OF CARE DISCUSSED WITH PT/FAMILY. VERBALIZED UNDERSTANDING. INSTRUCTED TO USE CALL LIGHT IF NEED TO GET UP AND FOR ANY PROBLEM LIKE PAIN . BED ON LOW POSITION. WILL CONTINUE TO MONITOR. Addendum: 06/07/17 at 1933 by Gisell Cheng RN CANCEL ABOVE NOTES. CAREGIVER MISTAKE.
[2017-06-07] MEDS: NACL 0.9% 1,000 ML IV SCH (11:27)
--- NOTE | 2017-06-07 11:30 | NUR ---
PATIENT IS SLEEPING COMFORTABLY, EASILY AROUSABLE BY NAME. NO DISTRESS NOTED. DENIED PAIN AT THIS TIME. CALL LIGHT WITHIN REACH. WILL CONTINUE TO MONITOR
--- NOTE | 2017-06-07 13:03 | NUR ---
CM NOTE INITIAL REVIEW FAXED TO [facility] [phone] JUAN PH# [phone] KELLI PH# [phone]
--- NOTE | 2017-06-07 13:10 | NUR ---
PATIENT IS AWAKE, ALERT. RESPIRATION EVEN, UNLABOR. COMPLAINED OF BACK PAIN 11/28. WILL MEDICATE PER ORDER
[2017-06-07] MEDS: HYDROcodone/APAP 5/325 MG 1 TAB TAB PO PRN ×2 (13:29→20:36)
[2017-06-07 13:30] VITALS: BP 147/58
[2017-06-07 15:00] VITALS: BP 124/47
[2017-06-07 16:00] VITALS: BP 116/56
[2017-06-07] MEDS: INSULIN LISPRO SLIDING SCALE 100 UNITS/ML VIAL SUBQ PRN ×2 (17:20→20:33)
--- NOTE | 2017-06-07 18:30 | NUR ---
PATIENT IS AWAKE, ALERT, EATING DINNER. RESPIRATION EVEN, UNLABOR. DENIED PAIN AT THIS TIME. CALL LIGHT WITHIN REACH. IV INFUSING WELL.
--- NOTE | 2017-06-07 19:18 | NUR ---
ENDORSEMENT GIVEN TO THE DOLL WIGS HACKLER NURSE. PATIENT IS STABLE AT THIS TIME.
--- NOTE | 2017-06-07 19:20 | NUR ---
RECEIVED PT IN STABLE CONDITION FROM AM NURSE. AWAKE,ALERT AND ORIENTED X3, WITH PERIODS OF FORGETFULNESS. ON MED LYDIA. DAUGHTER AT BEDSIDE. HAS IVF INFUSING WELL ON THE LT AC#22. PLAN OF CARE DISCUSSED WITH PT/FAMILY. VERBALIZED UNDERSTANDING. INSTRUCTED TO USE CALL LIGHT IF NEED TO GET UP AND FOR ANY PROBLEM LIKE PAIN . BED ON LOW POSITION. WILL CONTINUE TO MONITOR.
--- NOTE | 2017-06-07 20:33 | NUR ---
BLOOD SUGAR WAS CHECKED RESULT 160. INSULIN COVERAGE GIVEN SUBQ. THEN PROVIDED WITH SOME SNACKS. WILL CONTINUE TO MONITOR.
[2017-06-07] MEDS ORDERED: SIMVASTATIN 20 MG TAB PO SCH (21:00)
--- NOTE | 2017-06-07 21:00 | NUR ---
PT ASSISTED UP TO BATHROOM. VOIDED WELL. BACK TO BED WITH NO DISCOMFORT NOTED.
--- NOTE | 2017-06-07 22:30 | NUR ---
MADE ROUNDS . PT IS ASLEEP. NO S/S OF DISCOMFORT. WILL CONTINUE TO MONITOR.
--- NOTE | 2017-06-07 23:05 | NUR ---
PT AWAKE, CALLED AND SAID TO CHECK HER BLOOD SUGAR FOR SHE FEEL IT IS LOW. BLOOD SUGAR IS ONLY 52. SO PT GIVEN SOME JUICE AND SANDWICH. WILL RECHECK BLOOD SUGAR LATER.
--- NOTE | 2017-06-08 00:25 | NUR ---
BLOOD SUGAR WAS RECHECKED RESULT 142. PT SAID SHE FEEL BETTER. INSTRUCTED PT TO CALL AGAIN IF SHE FEELS BS IS GOING DOWN. WILL CONTINUE TO MONITOR.
[2017-06-08 00:26] VITALS: BP 104/42
[2017-06-08] MEDS: NACL 0.9% 1,000 ML IV SCH ×3 (00:47→14:07)
--- NOTE | 2017-06-08 01:30 | NUR ---
MADE ROUNDS. PT IS ASLEEP AT THIS TIME. NO S/SF ANY DISCOMFORT NOTED.
--- NOTE | 2017-06-08 03:30 | NUR ---
SLEEPING WELL AT THIS TIME. NO S/S OF ANY DISCOMFORT NOTED.
[2017-06-08] MEDS: BLOOD GLUCOSE MONITORING 1 DEV DEV FS SCH ×3 (06:00→17:00)
[2017-06-08] MEDS: INSULIN LISPRO SLIDING SCALE 100 UNITS/ML VIAL SUBQ PRN ×2 (06:01→16:52)
--- NOTE | 2017-06-08 06:03 | NUR ---
BLOOD SUGAR THIS AM 238. INSULIN COVERAGE GIVEN SUBQ. JUICE PROVIDED. WILL CONTINUE TO MONITOR.
[2017-06-08 06:34] LABS: BASOPHILS # (AUTO) 0.3 K/uL (0.00-0.22); BASOPHILS % (AUTO) 3.1 % (0.0-2.0); EOSINOPHILS # (AUTO) 0.4 K/uL (0-0.4); EOSINOPHILS % (AUTO) 5.2 % (0.0-4.0); HEMATOCRIT 30.4 % (36-48); HEMOGLOBIN 9.9 g/dL (12.0-16.0); LYMPHOCYTES # (AUTO) 1.8 K/uL (2.5-16.5); LYMPHOCYTES % (AUTO) 21.8 % (20.5-51.1); MEAN CORPUSCULAR HEMOGLOBIN 30 pg (27-31); MEAN CORPUSCULAR HGB CONC 33 g/dL (33-37); MEAN CORPUSCULAR VOLUME 91 fL (80-94); MONOCYTES # (AUTO) 0.4 K/uL (0.8-1.0); MONOCYTES % (AUTO) 5.1 % (1.7-9.3); NEUTROPHILS # (AUTO) 5.4 K/uL (1.8-7.7); NEUTROPHILS % (AUTO) 64.8 % (42.2-75.2); PLATELET COUNT (AUTO) 201 K/uL (140-450); RED BLOOD CELL COUNT(AUTO) 3.34 MIL/uL (4.20-5.40); RED CELL DISTRIBUTION WIDTH 13.6 % (11.6-13.7); WHITE BLOOD COUNT (AUTO) 8.3 K/uL (4.8-10.8)
[2017-06-08 06:48] LABS: ANION GAP 10.6 (8-16); CARBON DIOXIDE 25.6 mmol/L (21-32); CHLORIDE 108 mmol/L (98-107); CREATININE 1.2 mg/dL (0.6-1.3); GLUCOSE 245 mg/dL (74-106); POTASSIUM 4.2 mmol/L (3.5-5.1); SODIUM SERUM 140 mmol/L (136-145); UREA NITROGEN, BLOOD 25 mg/dL (7-18)
--- NOTE | 2017-06-08 07:23 | NUR ---
ENDORSED PT IN STABLE CONDITION TO AM NURSE.
--- NOTE | 2017-06-08 07:24 | NUR ---
RECEIVED REPORT FROM WINDOW AND DOOR INSTALLER NURSE. PATIENT LYING DOWN IN BED SLEEPING, AROUSABLE BY VOICE. IN STABLE CONDITION. NO DISTRESS NOTED. RESPIRATIONS EVEN, UNLABORED, ON ROOM AIR. DENIES ANY PAIN AT THIS TIME. AAOX3, CALM, COOPERATIVE, FORGETFUL, SKIN COLOR APPROPRIATE TO ETHNICITY, WARM TO TOUCH. SKIN IS INTACT THROUGHOUT BODY. LUNGS CTA ON ALL LOBES. ABDOMEN SOFT, NON-DISTENDED. ABLE TO WALK TO BATHROOM AND BACK WITH ASSIST. IV SITE IS INTACT, PATENT, AND INFUSING IVF PER ORDERS. REVIEWED PLAN OF CARE WITH PATIENT. PATIENT VERBALIZED UNDERSTANDING. SAFETY MEASURES IN PLACE, CALL LIGHT WITHIN REACH. WILL CONTINUE TO MONITOR.
[2017-06-08 08:00] VITALS: BP 128/52
--- NOTE | 2017-06-08 08:33 | NUR ---
DR. CRAIG AT BEDSIDE REVIEWING PLAN OF CARE WITH PATIENT. WILL CONTINUE TO MONITOR.
[2017-06-08] MEDS: cloNIDine 0.1 MG TAB PO SCH ×3 (09:00→17:00)
[2017-06-08] MEDS: amLODIPine 5 MG TAB PO SCH (09:00)
[2017-06-08] MEDS: LISINOPRIL 10 MG TAB PO SCH (09:00)
[2017-06-08] MEDS: ENOXAPARIN 30 MG/0.3 ML SYR SUBQ SCH (09:44)
[2017-06-08] MEDS: HYDROcodone/APAP 5/325 MG 1 TAB TAB PO PRN (09:52)
--- NOTE | 2017-06-08 09:54 | NUR ---
PATIENT LYING IN BED WATCHING TV. NO DISTRESS NOTED. RESPIRATIONS EVEN, UNLABORED, ON ROOM AIR. IV SITE IS INTACT, PATENT, AND INFUSING IVF PER ORDERS. C/O OF LOWER BACK PAIN, MEDICATED WITH NORCO. OTHER SCHEDULED MEDICATIONS DUE GIVEN. SAFETY MEASURES IN PLACE, CALL LIGHT WITHIN REACH. WILL CONTINUE TO MONITOR.
[2017-06-08 12:00] VITALS: BP 141/67
--- NOTE | 2017-06-08 12:20 | NUR ---
PATIENT SITTING IN BED WITH LUNCH TRAY IN FRONT. NO DISTRESS NOTED. DENIES ANY PAIN AT THIS TIME. CONDITION UNCHANGED. SCHEDULED MEDICATIONS DUE GIVEN. SAFETY MEASURES IN PLACE, CALL LIGHT WITHIN REACH. WILL CONTINUE TO MONITOR.
[2017-06-08] MEDS ORDERED: CEPH500T PO (12:39)
--- NOTE | 2017-06-08 12:39 | NUR ---
FAXED CONCURRENT REVIEW TO [facility] [phone] PHONE NOVEMBER [phone]
--- NOTE | 2017-06-08 12:56 | NUR ---
PATIENT AMBULATED TO BATHROOM AND BACK TO BED INDEPENDENTLY. NO DISTRESS NOTED. WILL CONTINUE TO MONITOR.
--- NOTE | 2017-06-08 13:38 | NUR ---
PATIENT SLEEPING IN BED, AROUSABLE BY VOICE. NO DISTRESS NOTED. DENIES ANY PAIN. CONDITION UNCHANGED. SAFETY MEASURES IN PLACE, CALL LIGHT WITHIN REACH. WILL CONTINUE TO MONITOR.
--- NOTE | 2017-06-08 15:45 | NUR ---
PATIENT SITTING IN CHAIR WATCHING TV. NO DISTRESS NOTED. DENIES ANY PAIN. ABLE TO AMBULATE INDEPENDENTLY FROM BED TO CHAIR WITH A WALKER. CONDITION UNCHANGED. SAFETY MEASURES IN PLACE, CALL LIGHT WITHIN REACH, FALL PREVENTIONS IN PLACE. WILL CONTINUE TO MONITOR.
[2017-06-08 16:00] VITALS: BP 124/56
[2017-06-08 17:00] VITALS: BP 124/56
--- NOTE | 2017-06-08 17:01 | NUR ---
PATIENT SITTING IN BED WATCHING TV. NO DISTRESS NOTED. DENIES ANY PAIN. SCHEDULED MEDICATIONS DUE GIVEN. CONDITION UNCHANGED. PATIENT AWARE THAT SHE WILL BE GOING HOME TODAY. AWAITING FOR DAUGHTER TO PICK HER UP AFTER DAUGHTER GETS OFF WORK. SAFETY MEASURES IN PLACE, CALL LIGHT WITHIN REACH. WILL CONTINUE TO MONITOR
--- NOTE | 2017-06-08 17:20 | NUR ---
PATIENT AMBULATED TO BATHROOM AND BACK TO BED INDEPENDENTLY. SAFETY MEASURES IN PLACE. WILL CONTINUE TO MONITOR.
--- NOTE | 2017-06-08 18:32 | NUR ---
PROVIDED DISCHARGE INSTRUCTIONS/EDUCATION TO PATIENT, FOLLOW-UP VISIT WITH MD, NEW/CHANGED MEDICATIONS REGIMEN, DIET REGIMEN, AND DISEASE PROCESS OF UTI. PROVIDED DISCHARGE INSTRUCTIONS IN PATIENT'S PREFERRED LANGUAGE OF SCOTTISH. ANSWERED ALL OF PATIENT'S QUESTIONS REGARDING DISCHARGE AND FOLLOW UP. PATIENT VERBALIZED COMPLETE UNDERSTANDING. IV SITE REMOVED WITH MINIMAL BLOOD AND LUMEN COMPLETELY INTACT. ID BANDS REMOVED. ALL BELONGINGS WITH PATIENT. PATIENT GETTING DRESSED UP IN OWN CLOTHES, NO ASSISTANCE NEEDED. PATIENT AWAITING FOR DAUGHTER TO ARRIVE AT HOSPITAL TO TAKE PATIENT HOME VIA PRIVATE VEHICLE.
--- NOTE | 2017-06-08 18:55 | NUR ---
PATIENT'S DAUGHTER HERE ON [facility] UNIT TO TAKE PATIENT HOME. ESCORTED PATIENT DOWN TO LOBBY VIA WHEELCHAIR. PATIENT ABLE TO AMBULATE FROM WHEELCHAIR TO PRIVATE VEHICLE. PATIENT DISCHARGED HOME AT THIS TIME VIA PRIVATE VEHICLE IN STABLE CONDITION WITH DAUGHTER.
== END 2017-06-08 18:55 | disposition home or self-care (01) | DRG 463 ==
LOC: MED 17:33 → MTU 21:48
PROVIDERS: ADMIT Internal Medicine Pulmonary Disease; ATTEND Internal Medicine Pulmonary Disease
DX: N39.0 Urinary tract infection, site not specified (principal); I12.0 Hypertensive chronic kidney disease with stage 5 chronic kidney disease or end stage renal disease; E11.22 Type 2 diabetes mellitus with diabetic chronic kidney disease; N18.6 End stage renal disease; E66.9 Obesity, unspecified; J45.909 Unspecified asthma, uncomplicated; Z88.6 Allergy status to analgesic agent; Z68.27 Body mass index [BMI] 27.0-27.9, adult; Z99.2 Dependence on renal dialysis; Z90.49 Acquired absence of other specified parts of digestive tract; Z90.710 Acquired absence of both cervix and uterus
CPT/HCPCS: 36415; 80048; 80053; 81001; 82948; 83605; 83735; 85025; 85610; 85730; 87040; 87081; 87086; 96361; 96374; 96375; 99285; J0696; J1650; J1815; J1885; J2405; J7030; J7060

== ENCOUNTER 2017-09-04 13:10 | Emergency (ER) | payer OTHER, MEDICARE ==
[~2017-09-04] VITALS: Ht 154.9 cm; Wt 63.5 kg
[~2017-09-04 13:10] MED LIST changes: +CEPH500T PO; -LEVO750T2 PO
[2017-09-04 13:15] VITALS: BP 134/54
--- NOTE | 2017-09-04 15:37 | NUR ---
PT AMBULATED TO CHD
--- NOTE | 2017-09-04 15:44 | NUR ---
c/o persistant dysuria x 2 wk----fever pmd phoned in rx 5 days ago, last dose yesterday . DENIES N/V/D; SKIN IS PINK/WARM/DRY; AAOX4 WITH EVEN AND STEADY GAIT; LUNGS CLEAR BL; HR EVEN AND REGULAR; PT DENIES ANY CP, SOB, OR COUGH AT THIS TIME; PATIENT STATES PAIN OF 0/10 AT THIS TIME; ER MD MADE AWARE OF PT STATUS.
--- NOTE | 2017-09-04 16:25 | NUR ---
D RFOWER EVALUATING PT AT BEDSIDE
[2017-09-04] MEDS ORDERED: FLUCONAZOLE 100 MG TAB PO ONE (17:10)
[2017-09-04] MEDS ORDERED: hydrOXYzine HCL 10 MG TAB PO ONE (17:10)
--- NOTE | 2017-09-04 17:15 | NUR ---
ATARAX AND DIFLUCAN OUT OF STOCK IN ER, CALLED PIT FURNACE MELTER DON.
[2017-09-04] MEDS ORDERED: FLUCONAZOLE 100 MG TAB ONE (17:48)
--- NOTE | 2017-09-04 17:57 | NUR ---
DISABILITY SPECIALIST DON CAME IN AND SAID HE CAN NOT FIND ATARAX 10 MG PILL, HE CAN ONLY GET 25 MG PILL, PER , GIVE DIFLUCAN 100 MG ONLY, PT'S FAMILY VERBALZIED UNDERSTANDING.
[2017-09-04 18:13] VITALS: BP 144/59
--- NOTE | 2017-09-04 18:15 | NUR ---
Patient discharged with v/s stable. Written and verbal after care instructions given and explained. Patient alert, oriented and verbalized understanding of instructions. Ambulatory with steady gait. All questions addressed prior to discharge. ID band removed. Patient advised to follow up with PMD. Rx of PYRIDIUM AND GYNE-LOTRIMIN given. Patient educated on indication of medication including possible reaction and side effects. Opportunity to ask questions provided and answered.
== END 2017-09-04 18:15 | disposition home or self-care (01) ==
LOC: MED 13:10
DX: B37.3 Candidiasis of vulva and vagina (principal); J45.909 Unspecified asthma, uncomplicated; I12.0 Hypertensive chronic kidney disease with stage 5 chronic kidney disease or end stage renal disease; N18.6 End stage renal disease; Z88.5 Allergy status to narcotic agent
CPT/HCPCS: 81002; 82948; 99283

== ENCOUNTER 2018-01-07 15:47 | Emergency (ER) | payer OTHER, MEDICARE ==
[~2018-01-07] VITALS: Ht 149.9 cm; Wt 65.8 kg
[2018-01-07 15:53] VITALS: BP 169/77
--- NOTE | 2018-01-07 16:08 | NUR ---
AMBUALTES WITH SLOW STEADY GAIT WITH WALKER TO BED 7
--- NOTE | 2018-01-07 16:10 | NUR ---
BIB DAUGHTER FOR C/O NASUEA/VOMITING GREEN YELLOW PHLEGM X 4 DAYS, AND ONE EPISODE OF DIARRHEA TODAY. DENIES FEVER. ALSO REPORTS LUQ ABD PAIN 7/10, AND MILD DIZZINESS. HX: DM, HTN
--- NOTE | 2018-01-07 16:38 | NUR ---
Dr Brennan evaluating aao pt with daughter at bedside
[2018-01-07] MEDS ORDERED: ONDANSETRON 4 MG/2 ML VIAL IVP ONE (16:45)
--- NOTE | 2018-01-07 17:06 | NUR ---
Pt taken off the unit via [facility] for CT and XRAY
[2018-01-07 17:18] LABS: BASOPHILS # (AUTO) 0.1 K/uL (0.00-0.22); BASOPHILS % (AUTO) 0.8 % (0.0-2.0); EOSINOPHILS # (AUTO) 0.1 K/uL (0-0.4); EOSINOPHILS % (AUTO) 1.1 % (0.0-4.0); HEMATOCRIT 37.2 % (36-48); LYMPHOCYTES # (AUTO) 1.3 K/uL (2.5-16.5); LYMPHOCYTES % (AUTO) 15.5 % (20.5-51.1); MEAN CORPUSCULAR HEMOGLOBIN 29 pg (27-31); MEAN CORPUSCULAR HGB CONC 32 g/dL (33-37); MEAN CORPUSCULAR VOLUME 90.6 fL (80-94); MONOCYTES # (AUTO) 0.5 K/uL (0.8-1.0); MONOCYTES % (AUTO) 5.8 % (1.7-9.3); NEUTROPHILS # (AUTO) 6.4 K/uL (1.8-7.7); NEUTROPHILS % (AUTO) 76.8 % (42.2-75.2); PLATELET COUNT (AUTO) 208 K/uL (140-450); WHITE BLOOD COUNT (AUTO) 8.3 K/uL (4.8-10.8)
[2018-01-07 17:31] LABS: ANION GAP 27.3 (8-16); CHLORIDE 105 mmol/L (98-107); CREATININE 1.4 mg/dL (0.6-1.3); GLUCOSE 205 mg/dL (74-106); POTASSIUM 4.3 mmol/L (3.5-5.1); SODIUM SERUM 138 mmol/L (136-145); UREA NITROGEN, BLOOD 26 mg/dL (7-18)
[2018-01-07 17:45] LABS: ALBUMIN 3.8 g/dL (3.4-5.0); ASPARTATE AMINOTRANSFERASE 10 U/L (15-37); LIPASE 152 U/L (73-393); TOTAL BILIRUBIN 0.5 mg/dL (0.0-1.0)
--- NOTE | 2018-01-07 19:11 | NUR ---
REPORT GIVEN TO JANNETH CASTRO FOR CONTINUATINO OF CARE
--- NOTE | 2018-01-07 19:12 | NUR ---
PATIENT RESTING AT THIS TIME. NO SIGNS OF DISTRESS.
[2018-01-07 19:30] VITALS: BP 160/60
--- NOTE | 2018-01-07 19:30 | NUR ---
Patient discharged with v/s stable. Written and verbal after care instructions given and explained. Patient alert, oriented and verbalized understanding of instructions. Ambulatory with steady gait. All questions addressed prior to discharge. ID band removed. Patient advised to follow up with PMD. Rx of ZOFRAN 4 MG ODT given. Patient educated on indication of medication including possible reaction and side effects. Opportunity to ask questions provided and answered.
== END 2018-01-07 19:30 | disposition home or self-care (01) ==
LOC: MED 15:47
DX: E11.22 Type 2 diabetes mellitus with diabetic chronic kidney disease (principal); I12.0 Hypertensive chronic kidney disease with stage 5 chronic kidney disease or end stage renal disease; N18.6 End stage renal disease; N17.9 Acute kidney failure, unspecified; Z88.5 Allergy status to narcotic agent; J45.909 Unspecified asthma, uncomplicated
CPT/HCPCS: 36415; 71045; 74176; 80053; 81002; 83605; 83690; 84484; 85025; 93005; 96374; 99285; J2405

== ENCOUNTER 2018-06-04 14:56 | Emergency (ER) | payer MEDICARE, OTHER ==
[~2018-06-04] VITALS: Ht 162.6 cm; Wt 63.6 kg
[2018-06-04 15:04] VITALS: BP 145/59
--- NOTE | 2018-06-04 15:09 | NUR ---
pt ambulates w/ steady gait to the lobby w/ vss to wait for an available bed accompanied by daughter.
--- NOTE | 2018-06-04 16:28 | NUR ---
PT AMBULATES TO BED 9 AT THIS TIME ACCOMPANIED BY DAUGHTER
--- NOTE | 2018-06-04 16:32 | NUR ---
PATIENT PRESENTS TO ED WITH THE CHIEF C/O BURNING URINATION AND BLOOD IN URING. DAUGHTER STATES PT WAS HAVING SYMPTOMS OF BURNING URINATION SINCE LAST WEDNESDAY BUT PT STARTED HAVING BLOOD IN URINE SINCE YESTERDAY. PT WS TAKING CIPRO MEDS PER PCP. AFEBRILE. PT POINTS PAIN ON PERINEAL AREA 03/30. PT IS NAUSEATED. DENIES V/D AT THIS TIME; SKIN IS PINK/WARM/DRY; AAOX4 WITH NO CP, SOB, OR COUGH NOTED AT THIS TIME; VS: T 97.7 HR 66 SPO2 99 BP 166/56 RR 10. PATIENT POSITIONED FOR COMFORT; HOB ELEVATED; BEDRAILS UP X2; BED DOWN. ER MD MADE AWARE OF PT STATUS.
--- NOTE | 2018-06-04 16:46 | NUR ---
PT ENCOURAGED TO URINATE AND COLLECT UEINE SAMPLE.
[2018-06-04] MEDS ORDERED: KETOROLAC 60 MG/2 ML VIAL IM ONE (17:30)
--- NOTE | 2018-06-04 17:59 | NUR ---
Patient discharged with v/s stable. Written and verbal after care instructions given and explained. Patient alert, oriented and verbalized understanding of instructions. Ambulatory with steady gait. All questions addressed prior to discharge. ID band removed. Patient advised to follow up with PMD. Rx of MOTRIN, BACTRIM AND NORCO given. Patient educated on indication of medication including possible reaction and side effects. Opportunity to ask questions provided and answered.
[2018-06-04 18:00] VITALS: BP 164/59
== END 2018-06-04 17:59 | disposition home or self-care (01) ==
LOC: MED 14:56
DX: N39.0 Urinary tract infection, site not specified (principal); J45.909 Unspecified asthma, uncomplicated; F03.90 Unspecified dementia, unspecified severity, without behavioral disturbance, psychotic disturbance, mood disturbance, and anxiety; E11.22 Type 2 diabetes mellitus with diabetic chronic kidney disease; I12.0 Hypertensive chronic kidney disease with stage 5 chronic kidney disease or end stage renal disease; N18.6 End stage renal disease; Z88.5 Allergy status to narcotic agent; Z79.899 Other long term (current) drug therapy; Z90.49 Acquired absence of other specified parts of digestive tract; Z90.710 Acquired absence of both cervix and uterus
CPT/HCPCS: 81002; 87086; 96372; 99283; J1885

== ENCOUNTER 2018-06-12 20:59 | Emergency (ER) | payer MEDICARE, OTHER ==
[~2018-06-12] VITALS: Ht 149.9 cm; Wt 63.5 kg
[2018-06-12 21:07] VITALS: BP 139/48
--- NOTE | 2018-06-12 21:33 | NUR ---
PT GOING TO CT AT THIS TIME.
--- NOTE | 2018-06-12 22:01 | NUR ---
PT BIBA FOR FALL. PT STATES SHE FELL AND HIT CONCRETE FROM A STANDING POSITION, REPORTS PAIN AT 7/10. BRUISING AND SWELLING PRESENT ON BACK OF HEAD. PT IS AAOX4, COOPERATIVE, AND PEERLA. ER TO SEE PT. SAFETY PRECAUTIONS IN PLACE. WILL CONTINUE TO MONITOR.
[2018-06-12 23:46] VITALS: BP 137/41
--- NOTE | 2018-06-12 23:46 | NUR ---
Patient discharged with v/s stable. Written and verbal after care instructions given and explained. Patient alert, oriented and verbalized understanding of instructions. Wheel Chair Assisted with to car. All questions addressed prior to discharge. ID band removed. Patient advised to follow up with PMD. Rx of AZITHROMYCIN given. Patient educated on indication of medication including possible reaction and side effects. Opportunity to ask questions provided and answered.
== END 2018-06-12 23:46 | disposition home or self-care (01) ==
LOC: MED 20:59
DX: S06.0X0A Concussion without loss of consciousness, initial encounter (principal); J18.9 Pneumonia, unspecified organism; F03.90 Unspecified dementia, unspecified severity, without behavioral disturbance, psychotic disturbance, mood disturbance, and anxiety; E11.22 Type 2 diabetes mellitus with diabetic chronic kidney disease; I12.0 Hypertensive chronic kidney disease with stage 5 chronic kidney disease or end stage renal disease; J45.909 Unspecified asthma, uncomplicated; N18.6 End stage renal disease; Z88.5 Allergy status to narcotic agent; W18.09XA Striking against other object with subsequent fall, initial encounter; Y93.01 Activity, walking, marching and hiking; Y92.89 Other specified places as the place of occurrence of the external cause; Y99.8 Other external cause status
CPT/HCPCS: 70450; 71045; 72125; 93005; 99284; Q0092

== ENCOUNTER 2018-07-13 17:30 | Emergency (ER) | payer MEDICARE, OTHER ==
[~2018-07-13] VITALS: Ht 152.4 cm; Wt 65.3 kg
[~2018-07-13 17:30] MED LIST changes: -AMLO5TAB4 PO; +AMLO5TAB6 PO
[2018-07-13 17:45] VITALS: BP 139/54
--- NOTE | 2018-07-13 18:10 | NUR ---
BIB DAUGHTER WITH C/O NVD X 3 DAYS WITH ABDOMINAL PAIN SKIN IS PINK/WARM/DRY; LUNGS CLEAR BL; HR EVEN AND REGULAR; PT DENIES ANY FEVER, CP, SOB, OR COUGH AT THIS TIME; PATIENT STATES PAIN OF 0/10 AT THIS TIME; VSS; PATIENT POSITIONED FOR COMFORT; HOB ELEVATED; BEDRAILS UP X2; BED DOWN. ER MD MADE AWARE OF PT STATUS.
[2018-07-13 18:15] LABS: BASOPHILS % (AUTO) 0.4 % (0.0-2.0); EOSINOPHILS % (AUTO) 0.7 % (0.0-4.0); LYMPHOCYTES # (AUTO) 0.5 K/uL (2.5-16.5); LYMPHOCYTES % (AUTO) 8.3 % (20.5-51.1); MEAN CORPUSCULAR HEMOGLOBIN 30 pg (27-31); MEAN CORPUSCULAR HGB CONC 33 g/dL (33-37); MEAN CORPUSCULAR VOLUME 93.2 fL (80-94); MONOCYTES # (AUTO) 0.4 K/uL (0.8-1.0); NEUTROPHILS # (AUTO) 5.2 K/uL (1.8-7.7); NEUTROPHILS % (AUTO) 84.6 % (42.2-75.2); PLATELET COUNT (AUTO) 194 K/uL (140-450); RED BLOOD CELL COUNT(AUTO) 3.97 MIL/uL (4.20-5.40); RED CELL DISTRIBUTION WIDTH 15.3 % (11.6-13.7); WHITE BLOOD COUNT (AUTO) 6.2 K/uL (4.8-10.8)
[2018-07-13] MEDS ORDERED: NACL 0.9% 1,000 ML IV ONE (18:15)
[2018-07-13 18:35] LABS: ANION GAP 10.4 (8-16); CARBON DIOXIDE 23.7 mmol/L (21-32); CHLORIDE 110 mmol/L (98-107); CREATININE 1.6 mg/dL (0.6-1.3); GLUCOSE 323 mg/dL (74-106); POTASSIUM 5.1 mmol/L (3.5-5.1); SODIUM SERUM 139 mmol/L (136-145); UREA NITROGEN, BLOOD 28 mg/dL (7-18)
[2018-07-13 18:40] LABS: ALBUMIN 3.9 g/dL (3.4-5.0); ASPARTATE AMINOTRANSFERASE 12 U/L (15-37); LIPASE 291 U/L (73-393); TOTAL BILIRUBIN 0.4 mg/dL (0.0-1.0)
--- NOTE | 2018-07-13 18:50 | NUR ---
PATIENT BACK FROM CT
[2018-07-13] MEDS ORDERED: DICYCLOMINE 20 MG/2 ML VIAL IM ONE (19:00)
--- NOTE | 2018-07-13 20:00 | NUR ---
TOOK OVER CARE OF PT. REPORT FROM CATRACHITO LAGUNAS. VSS; PT IN BED. SAFETY PRECAUTIONS IN PLACE. WILL CONTINUE TO MONITOR.
[2018-07-13 20:36] LABS: APPEARANCE,URINE SLIGHTLY CLOUDY (CLEAR); BILIRUBIN,URINE NEGATIVE (NEGATIVE); BLOOD, URINE 1+ (NEGATIVE); COLOR,URINE YELLOW (YELLOW); LEUKOCYTE ESTERASE ,URINE 1+ (NEGATIVE); NITRITE, URINE NEGATIVE (NEGATIVE); UGLUCOSE TRACE (NEGATIVE)
[2018-07-13 20:37] LABS: RBC,URINE 0-5 (RARE) /HPF (0-5)
[2018-07-13 20:38] LABS: WBC,URINE 16-25 (MOD) /HPF (0-5)
[2018-07-13 21:46] VITALS: BP 138/56
--- NOTE | 2018-07-13 21:46 | NUR ---
Patient discharged with v/s stable. Written and verbal after care instructions given and explained. Patient alert, oriented and verbalized understanding of instructions. Ambulatory with steady gait. All questions addressed prior to discharge. ID band removed. Patient advised to follow up with PMD. Rx of BENTYL AND KEFLEX given. Patient educated on indication of medication including possible reaction and side effects. Opportunity to ask questions provided and answered.
== END 2018-07-13 21:46 | disposition home or self-care (01) ==
LOC: MED 17:30
DX: N39.0 Urinary tract infection, site not specified (principal); R19.7 Diarrhea, unspecified; J45.909 Unspecified asthma, uncomplicated; F03.90 Unspecified dementia, unspecified severity, without behavioral disturbance, psychotic disturbance, mood disturbance, and anxiety; E11.22 Type 2 diabetes mellitus with diabetic chronic kidney disease; I12.0 Hypertensive chronic kidney disease with stage 5 chronic kidney disease or end stage renal disease; N18.6 End stage renal disease; Z90.710 Acquired absence of both cervix and uterus; Z98.890 Other specified postprocedural states; Z79.899 Other long term (current) drug therapy; Z79.2 Long term (current) use of antibiotics
CPT/HCPCS: 36415; 74176; 80053; 81001; 83690; 85025; 87086; 96360; 96361; 96372; 99284; J0500; J7030

== ENCOUNTER 2019-07-25 11:20 | Outpatient (CLI) | payer MEDICARE, OTHER | END 2019-07-25 21:35 | disposition home or self-care (01) | LOC: MRD 11:20 | DX: M19.072 Primary osteoarthritis, left ankle and foot (principal); M81.0 Age-related osteoporosis without current pathological fracture | CPT/HCPCS: 73630 ==

== ENCOUNTER 2019-12-05 10:46 | Emergency (ER) | payer MEDICARE, OTHER ==
[~2019-12-05] VITALS: Ht 149.9 cm; Wt 67.6 kg
[2019-12-05 10:54] VITALS: BP 174/79
--- NOTE | 2019-12-05 11:03 | NUR ---
Patient transferred to bed 11 via wheelchair by triage nurse. RN evaluating patient at bedside.
--- NOTE | 2019-12-05 11:04 | NUR ---
Dr. Hay is evaluating the patient at bedside.
--- NOTE | 2019-12-05 11:05 | NUR ---
84 Y/O FEMALE FROM HOME C/O LOWER BACK PAIN SINCE YESTERDAY. PT STATES SUDDEN ONSET SHARP CONSTANT PAIN TO LOWER BACK. DENIES TRAUMA/INJURY TO AREA. DENIES URINARY SYMPTOMS. NO DEFORMITIES NOTED TO BACK. TOOK TYLENOL WITH NO PAIN RELIEF. POSITIONED FOR COMFORT, VSS MEDHX: ARTHRITIS, DM ALLERGIES: CODEINE
[2019-12-05] MEDS ORDERED: KETOROLAC 30 MG/ML VIAL IM ONE (11:10)
--- NOTE | 2019-12-05 11:20 | NUR ---
PT STATES SHE IS UNABLE TO PROVIDE URINE SAMPLE AT THIS TIME, WILL FOLLOW UP
--- NOTE | 2019-12-05 11:22 | NUR ---
PT TAKEN TO X-RAY VIA WHEELCHAIR
--- NOTE | 2019-12-05 11:32 | NUR ---
Patient returned from X-ray, RN re-evaluating patient at bedside.
--- NOTE | 2019-12-05 11:55 | NUR ---
DECREASE IN PAIN AFTER TORADOL IM. RESTING COMFORTABLY WITH EYES CLOSED, VISIBLE RISE AND FALL OF THE CHEST. VSS. WILL CONTINUE TO MONITOR
--- NOTE | 2019-12-05 12:19 | NUR ---
Dr. Hay is re-evaluating the patient at bedside.
--- NOTE | 2019-12-05 12:25 | NUR ---
ua sent to lab. er md dr isaac at bedside for 2 eval. Patient appears to be resting in bed. Pt sts "I feel a little better, I was able to get some sleep. My rt lower back is still a sore." Respirations even and unlabored.
[2019-12-05 12:27] LABS: APPEARANCE,URINE CLEAR (CLEAR); BILIRUBIN,URINE NEGATIVE (NEGATIVE); BLOOD, URINE TRACE-I (NEGATIVE); COLOR,URINE YELLOW (YELLOW); LEUKOCYTE ESTERASE ,URINE 1+ (NEGATIVE); NITRITE, URINE NEGATIVE (NEGATIVE); PH,URINE 5.5 (5.0-9.0); UGLUCOSE TRACE (NEGATIVE)
[2019-12-05 12:34] LABS: RBC,URINE 0-5 /HPF (0-5)
[2019-12-05 12:51] VITALS: BP 186/75
--- NOTE | 2019-12-05 12:51 | NUR ---
Patient discharged with v/s stable. Written and verbal after care instructions given and explained. Patient alert, oriented and verbalized understanding of instructions. Wheel Chair Assisted with to car. All questions addressed prior to discharge. ID band removed. Patient advised to follow up with PMD. Rx of NAPROSYN 250MG AND MACROBID 100MG given. Patient educated on indication of medication including possible reaction and side effects. Opportunity to ask questions provided and answered.
== END 2019-12-05 12:51 | disposition home or self-care (01) ==
LOC: MED 10:46
DX: N39.0 Urinary tract infection, site not specified (principal); E11.9 Type 2 diabetes mellitus without complications; F03.90 Unspecified dementia, unspecified severity, without behavioral disturbance, psychotic disturbance, mood disturbance, and anxiety; I51.9 Heart disease, unspecified; I10 Essential (primary) hypertension; J45.909 Unspecified asthma, uncomplicated; K46.9 Unspecified abdominal hernia without obstruction or gangrene; M19.90 Unspecified osteoarthritis, unspecified site; N18.6 End stage renal disease; Z88.6 Allergy status to analgesic agent; Z90.49 Acquired absence of other specified parts of digestive tract; Z79.899 Other long term (current) drug therapy
CPT/HCPCS: 72100; 81001; 87086; 96372; 99284; J1885; 87186

== ENCOUNTER 2020-04-04 09:28 | Observation (INO) | payer OTHER, MEDICARE ==
[~2020-04-04] VITALS: Ht 152.4 cm; Wt 66.2 kg
--- NOTE | 2020-04-04 09:41 | NUR ---
Patient to bed 11. RN evaluating patient at bedside.
[2020-04-04 09:52] VITALS: BP 159/88
--- NOTE | 2020-04-04 09:56 | NUR ---
PT BIB DAUGHTER FROM HOME, PATIENT PRESENTS TO ED WITH HEADACHE, N/V + GEN WEAKNESS, RHINORRHEA X4 DAYS . DAUGHTER STATES THAT PT HAS BEEN C/O HEADACHE ACCOMPANIED WITH N/V AND OBSERVED GEN WEAKNESS X4 DAYS. ; SKIN IS PINK/WARM/DRY; AAOX4 WITH EVEN AND STEADY GAIT; LUNGS CLEAR BL; HR EVEN AND REGULAR; DENIES CP, SOB, OR COUGH AT THIS TIME; PATIENT STATES PAIN OF 8/10 AT THIS TIME R/T HEADACHE; VSS; PATIENT POSITIONED FOR COMFORT; HOB ELEVATED; BEDRAILS UP X2; BED DOWN. ER MD MADE AWARE OF PT STATUS.
[2020-04-04] MEDS ORDERED: NACL 0.9% 1,000 ML IV ONE (10:00)
--- NOTE | 2020-04-04 10:04 | NUR ---
Dr. Choi is evaluating the patient at bedside.
--- NOTE | 2020-04-04 10:26 | NUR ---
PT TAKEN TO CT VIA CYNTHIA
--- NOTE | 2020-04-04 10:40 | NUR ---
geological technical officer at bedside.
[2020-04-04 10:51] LABS: ANION GAP 13.4 (8-16); CARBON DIOXIDE 25.9 mmol/L (21-32); CHLORIDE 105 mmol/L (98-107); CREATININE 1.4 mg/dL (0.6-1.3); GLUCOSE 223 mg/dL (74-106); POTASSIUM 4.3 mmol/L (3.5-5.1); SODIUM SERUM 140 mmol/L (136-145); UREA NITROGEN, BLOOD 25 mg/dL (7-18)
[2020-04-04 10:55] LABS: BASOPHILS % (AUTO) 0.7 % (0.0-2.0); EOSINOPHILS # (AUTO) 0.2 K/uL (0-0.4); EOSINOPHILS % (AUTO) 2.9 % (0.0-4.0); HEMATOCRIT 30.5 % (36-48); HEMOGLOBIN 10.3 g/dL (12.0-16.0); LYMPHOCYTES # (AUTO) 1.1 K/uL (2.5-16.5); LYMPHOCYTES % (AUTO) 17.8 % (20.5-51.1); MEAN CORPUSCULAR HEMOGLOBIN 31 pg (27-31); MEAN CORPUSCULAR HGB CONC 34 g/dL (33-37); MONOCYTES # (AUTO) 0.3 K/uL (0.8-1.0); MONOCYTES % (AUTO) 5.1 % (1.7-9.3); NEUTROPHILS # (AUTO) 4.5 K/uL (1.8-7.7); NEUTROPHILS % (AUTO) 73.5 % (42.2-75.2); RED BLOOD CELL COUNT(AUTO) 3.32 MIL/uL (4.20-5.40); RED CELL DISTRIBUTION WIDTH 14.2 % (11.6-13.7)
[2020-04-04 10:57] LABS: ALBUMIN 3.5 g/dL (3.4-5.0); ASPARTATE AMINOTRANSFERASE 21 U/L (15-37); TOTAL BILIRUBIN 0.4 mg/dL (0.0-1.0)
[2020-04-04 11:11] LABS: PLATELET COUNT (AUTO) 100 K/uL (140-450); WHITE BLOOD COUNT (AUTO) 6.2 K/uL (4.8-10.8)
[2020-04-04 11:31] LABS: APPEARANCE,URINE CLEAR (CLEAR); BILIRUBIN,URINE NEGATIVE (NEGATIVE); BLOOD, URINE TRACE-I (NEGATIVE); COLOR,URINE YELLOW (YELLOW); LEUKOCYTE ESTERASE ,URINE NEGATIVE (NEGATIVE); NITRITE, URINE NEGATIVE (NEGATIVE); UGLUCOSE TRACE (NEGATIVE)
[2020-04-04 11:34] LABS: RBC,URINE 0-5 /HPF (0-5); WBC,URINE 0-5 /HPF (0-5)
[2020-04-04] MEDS ORDERED: ASPI-1822 PO (12:16)
[2020-04-04] MEDS ORDERED: FERR325E14 PO (12:16)
[2020-04-04] MEDS ORDERED: DONE10TA10 PO (12:16)
[2020-04-04] MEDS ORDERED: ERGO500028 PO (12:16)
[2020-04-04] MEDS ORDERED: MEMA5TAB PO (12:16)
[2020-04-04] MEDS ORDERED: DIT5 PO (12:16)
[2020-04-04] MEDS ORDERED: ENAL-197 PO (12:16)
[2020-04-04] MEDS ORDERED: GLIM2TAB PO (12:16)
[2020-04-04] MEDS ORDERED: ACETAMINOPHEN 325 MG TAB PO PRN (12:25)
[2020-04-04] MEDS ORDERED: ONDANSETRON 4 MG/2 ML VIAL IVP PRN (12:25)
--- NOTE | 2020-04-04 12:28 | NUR ---
Dr. Houston is evaluating the patient at bedside.
[2020-04-04] MEDS ORDERED: cefTRIAXone 1,000 MG VIAL ONE (12:29)
[2020-04-04 12:58] VITALS: BP 173/66
--- NOTE | 2020-04-04 12:58 | NUR ---
RECEIVED THIS 84 YEAR OLD, FEMALE, PER WHEELCHAIR FROM ER, AWAKE,ALERT BUT DEMENTED, WITH HEARING IMPAIRMENT NOTED, WITH ONGOING ZOSYN AT LEFT AC G 20 IV CANNULA INSERTED CARE HOME NOTED. FOR OBSERVATION A CASE OF UTI UNDER THE CARE OF DR. JEAN-BAPTISTE. SAFETY MEASURES IN PLACE AND CONTINUE MONITOR.
--- NOTE | 2020-04-04 13:03 | NUR ---
Patient will be admitted to care of . Admited to MED/SURG. Will go to room 112B. Belongings list completed. Report to JANNETH.
[2020-04-04] MEDS: NACL 0.9% 1,000 ML IV SCH (13:20)
--- NOTE | 2020-04-04 13:36 | NUR ---
BP- 173/66, DR. JEAN-BAPTISTE INFORMED IN THE UNIT.
[2020-04-04] MEDS ORDERED: hydrALAZINE 25 MG TAB PO PRN (13:45)
--- NOTE | 2020-04-04 14:32 | NUR ---
DISCHARGE PLANNING: THIS IS AN 84 Y/O FEMALE PATIENT FROM HOME, WHO CAME IN DUE TO NAUSEA, VOMITING, WEAKNESS. PAST MEDICAL HISTORY INCLUDE DIABETES INSULIN DEPENDENT, HTN, HYPERLIPIDEMIA, DEMENTIA. INITIAL DIAGNOSIS OF UTI. CURRENT LABS INCLUDE WBC 6.2, H/H 10.3/30.5, NA/K 140/4.3, BUN/CREA 25/1.4, BNP 632. ON ROCEPHIN. NO CONSULTS AT THIS TIME. PT EVAL IN PLACE. DC PLAN PENDING ON PATIENT'S RESPONSE TO TREATMENT.
--- NOTE | 2020-04-04 17:44 | NUR ---
BP-171/56, HYDRALAZINE 25MG 1TAB PO ORDERED PRN GIVEN, TOLERATED ORALLY
--- NOTE | 2020-04-04 17:45 | NUR ---
IV CANNULA AT LEFT AC, LEAKING AND MILD SWELLING NOTED. REMOVED AND DRESSING APPLIED. IV CANNULA G 22 INSERTED AT LEFT WRIST (CEPHALIC VEIN), ASYMPTOMATIC AND PATENT. DINNER SERVED
--- NOTE | 2020-04-04 18:31 | NUR ---
BP-135/44, FEEDING ASSISTED AND ABLE TO TOLERATE ORALLY.
--- NOTE | 2020-04-04 19:21 | NUR ---
ENDORSED TO COMPUTER PROGRAMMER ANALYST IN STABLE CONDITION FOR CONTINUITY OF CARE.
--- NOTE | 2020-04-04 19:22 | NUR ---
RECEIVED REPORT FROM LAUREN WEBER RN. PT AOX1 ON ROOM AIR. NO S/S RESPIRATORY DISTRESS. NO C/O PAIN AT THIS TIME. IV SITE LEFT WRIST 22G, PATENT AND INTACT, INFUSING NS AT 75ML/HR. SAFETY MEASURES IN PLACE. CALL LIGHT WITHIN REACH. WILL CONTINUE TO MONITOR
--- NOTE | 2020-04-04 21:50 | NUR ---
PT RESTING IN BED. NO DISTRESS NOTED. WILL CONTINUE TO MONITOR
[2020-04-05] VITALS: BP 132/48
--- NOTE | 2020-04-05 00:45 | NUR ---
PT ASLEEP IN BED. RESPIRATIONS EVEN AND UNLABORED. WILL CONTINUE TO MONITOR
[2020-04-05] MEDS: NACL 0.9% 1,000 ML IV SCH (01:57)
--- NOTE | 2020-04-05 03:50 | NUR ---
PT ASLEEP IN BED. NO DISTRESS NOTED. WILL CONTINUE TO MONITOR
[2020-04-05 05:18] LABS: BASOPHILS # (AUTO) 0.1 K/uL (0.00-0.22); BASOPHILS % (AUTO) 0.8 % (0.0-2.0); EOSINOPHILS # (AUTO) 0.3 K/uL (0-0.4); HEMATOCRIT 31.2 % (36-48); HEMOGLOBIN 10.6 g/dL (12.0-16.0); LYMPHOCYTES # (AUTO) 2.3 K/uL (2.5-16.5); LYMPHOCYTES % (AUTO) 22.4 % (20.5-51.1); MEAN CORPUSCULAR HEMOGLOBIN 31 pg (27-31); MEAN CORPUSCULAR HGB CONC 34 g/dL (33-37); MEAN CORPUSCULAR VOLUME 91.7 fL (80-94); MONOCYTES # (AUTO) 0.7 K/uL (0.8-1.0); MONOCYTES % (AUTO) 6.8 % (1.7-9.3); NEUTROPHILS # (AUTO) 6.9 K/uL (1.8-7.7); PLATELET COUNT (AUTO) 169 K/uL (140-450); RED CELL DISTRIBUTION WIDTH 14.1 % (11.6-13.7); WHITE BLOOD COUNT (AUTO) 10.3 K/uL (4.8-10.8)
[2020-04-05 06:15] LABS: ANION GAP 12.9 (8-16); CARBON DIOXIDE 24.9 mmol/L (21-32); CHLORIDE 108 mmol/L (98-107); CREATININE 0.9 mg/dL (0.6-1.3); GLUCOSE 166 mg/dL (74-106); POTASSIUM 3.8 mmol/L (3.5-5.1); SODIUM SERUM 142 mmol/L (136-145); UREA NITROGEN, BLOOD 15 mg/dL (7-18)
[2020-04-05 06:21] LABS: MAGNESIUM 1.7 mg/dL (1.8-2.4); PHOSPHORUS 2.3 mg/dL (2.5-4.9)
--- NOTE | 2020-04-05 07:30 | NUR ---
RECEIVED REPORT FROM PM RNSHANITA. PT CAME FROM HOME. CC: [id number]. DX: UTI. HX: DEMENTIA, HTN, HYPERLIPIDEMIA, ANEMIA. ALLERGIES: CODEINE. FULL CODE. IV: LT WRIST 22G RUNNING NS AT 75. DIET: REGULAR. A&OX1. PT IS ABLE TO AMBULATE. SKIN IS INTACT. PT IS ON OBSERVATION. PLAN: GIVE IV ANTIBIOTICS.
--- NOTE | 2020-04-05 07:30 | NUR ---
ENDORSED PT TO DAY RN FOR CONTINUITY OF CARE. PT IS IN STABLE CONDITION
[2020-04-05 08:00] VITALS: BP 151/52
--- NOTE | 2020-04-05 08:00 | NUR ---
ASSISTED PT TO BATHROOM. PT PASSED SMALL STOOL IN BED. STOOL: SOFT, BROWN, AND FORMED.
--- NOTE | 2020-04-05 08:22 | NUR ---
PATIENT HAS BEEN SCREENED AND CATEGORIZED MODERATE NUTRITION RISK. PATIENT WILL BE SEEN WITHIN 3-5 DAYS OF ADMISSION. 04/07/20 04/09/[address]
--- NOTE | 2020-04-05 10:03 | NUR ---
SOCIAL WORK NOTE: Patient's Orientation Unable To Assess Information Provided By BJ ROSEN - DAUGHTER Comments SW WAS UNABLE TO MEET PATIENT AT BEDSIDE DUE TO MEDICAL CONDITION. SW COMPLETED ASSESSMENT WITH PATIENT'S DAUGHTER, BJ ROSEN. Marketing Automation Manager, Realtionship and Phone Number BJ ROSEN DAUGHTER [phone] [facility] Power of Sales Promotion Director No Does Patient Have a POLST No Identifying Problems No Social Work Triggers Is A Social Work Consult Needed No Mandate Report Filed No Explanation Of Identifying Problems PATIENT IS AN 84-YEAR-OLD FEMALE ADMITTED FOR UTI. PATIENT HAS PMHX OF DEMENTIA. PER DAUGHTER, PATIENT HAS NO SUBSTANCE ABUSE OR MENTAL HEALTH HISTORY. Admitted From Home Pre-Admission Level Of Functioning Status Assist With ADL Level Of Functioning Comment DAUGHTER REPORTED THAT PATIENT REQUIRES ASSISTANCE PREPARING MEALS, BUT IS INDEPENDENT WITH ALL OTHER ADLS. Prior Resources/Services Used In Last 12 Months No Prior Resources Used Prior DME Walker Dialysis Comments PER PATIENT'S DAUGHTER, PATIENT DOES NOT RECEIVE DIALYSIS. Living Situation Lives With Family House Patient Had Caregiver No Home Support No Caregiver Issues Financial Issues No Known Financial Issue Referral To The Financial Counselor Needed No Factors/Needs No D/C Needs Identified Pt/Rep Participated In Discharge Plan Yes Patient/Family Agress With Discharge Plan Yes Discharge Plan Comments TENTATIVE DISCHARGE PLAN IS FOR PATIENT TO RETURN HOME. DC Plan Status Initiated
--- NOTE | 2020-04-05 10:30 | NUR ---
COMPLETED ROUNDS. PT IS SLEEPING IN BED. RESPIRATIONS ARE EVEN AND UNLABORED. NO SIGNS OF DISTRESS.
--- NOTE | 2020-04-05 12:50 | NUR ---
[facility]. POSSIBLE DC.
[2020-04-05] MEDS ORDERED: MAG SULF 2000 MG/WATER PREMIX 50 ML IV ONE (13:30)
--- NOTE | 2020-04-05 14:33 | NUR ---
NOTIFIED PT ABOUT DC TODAY. CALLED PTS FAMILY MEMBER REGARDING DC, LEFT A MESSAGE.
[2020-04-05 15:07] VITALS: BP 151/52
--- NOTE | 2020-04-05 17:03 | NUR ---
LATE ENTRY--CONFIRMED END TIME OF NS WITH RN -- END TIME IS 1123 ON 04/04/20
== END 2020-04-05 16:15 | disposition home or self-care (01) ==
LOC: MED 09:28 → MTU 12:25
PROVIDERS: ADMIT Hospitalist; ATTEND Hospitalist
DX: R53.1 Weakness (principal); R11.2 Nausea with vomiting, unspecified; E86.0 Dehydration; F03.90 Unspecified dementia, unspecified severity, without behavioral disturbance, psychotic disturbance, mood disturbance, and anxiety; E11.9 Type 2 diabetes mellitus without complications; I10 Essential (primary) hypertension; E78.5 Hyperlipidemia, unspecified; D64.9 Anemia, unspecified; Z87.440 Personal history of urinary (tract) infections; Z79.82 Long term (current) use of aspirin; Z79.4 Long term (current) use of insulin; Z79.899 Other long term (current) drug therapy; Z88.5 Allergy status to narcotic agent
CPT/HCPCS: 36415; 71045; 74176; 80048; 80053; 81001; 82948; 83036; 83690; 83735; 83880; 84100; 84484; 85025; 87081; 93005; 96361; 96365; 96366; 96367; 97110; 97116; 97161; 99285; G0378; J0696; J3475; J7030; J7060

== ENCOUNTER 2020-06-07 21:15 | Emergency (ER) | payer MEDICARE, OTHER ==
[~2020-06-07] VITALS: Ht 157.5 cm; Wt 65.8 kg
[2020-06-07 21:15] VITALS: BP 196/76
[~2020-06-07 21:15] MED LIST changes: -AMLO5TAB6 PO; +ASPI-1822 PO; -CEPH500T PO; -CLON0.1T15 PO; +DIT5 PO; +DONE10TA10 PO; +ENAL-197 PO; +ERGO500028 PO; +FERR325E14 PO; +GLIM2TAB PO; -LISI30TA6 PO; +MEMA5TAB PO
--- NOTE | 2020-06-07 21:30 | NUR ---
84 Y/O FEMALE BIB EMS FOR C/O N/V. PER EMS PT HAD BLOODY EMESIS. SHE WAS NOTED WITH HIGH B/P 167/94 PER EMS. SHE WAS AA&OX2, RESPIRATIONS WERE EVEN & NON-LABORED. O2 SAT OF 95% ON RA. HER LUNG SOUNDS WERE CLEAR BILAT A&P. HEART SOUNDS WERE EVEN AND REGULAR. ABD WAS SOFT, FLAT & NON-TENDER. BOWEL SOUNDS WERE HYPERACTIVE X4 QUADRANTS. PT WAS PLACED ON CARDIAC MONITORING, BP MONITORING AND PULSE OXIMETRY. BED LOCKED AND IN LOWEST POSITION. MEDHX- HTN, DM ALLX- CODEINE
--- NOTE | 2020-06-07 21:35 | NUR ---
20 G IV SITE ESTABLISHED TO Jimena HEWITT, SITE WAS PATENT NO INFILTARTION NOTED. SITE WAS FLUSHED WITH 10 CC OF 0.9% NS. BLOOD & CULTURES DRAWN GIVEN TO HOT AIR FURNACE INSTALLER AND REPAIRER.
[2020-06-07] MEDS ORDERED: PANTOPRAZOLE 40 MG INJ VIAL IVP ONE (21:45)
[2020-06-07] MEDS ORDERED: ONDANSETRON 4 MG/2 ML VIAL IVP ONE (21:45)
--- NOTE | 2020-06-07 21:54 | NUR ---
EKG PERFORMED AT BEDSIDE. EKG READS SINUS RHYTHM @ 76
--- NOTE | 2020-06-07 22:10 | NUR ---
PT TAKEN TO CT VIA CYNTHIA
--- NOTE | 2020-06-07 22:45 | NUR ---
URINE COLLECTED AT THIS TIME. PT WAS NOTED SOILED WITH URINE CHANGED INTO CLEAN GOWN AND CHANGED SHEETS.
[2020-06-07 22:50] LABS: BASOPHILS % (AUTO) 0.3 % (0.0-2.0); EOSINOPHILS % (AUTO) 0.2 % (0.0-4.0); HEMATOCRIT 36.4 % (36-48); HEMOGLOBIN 12.1 g/dL (12.0-16.0); LYMPHOCYTES # (AUTO) 0.4 K/uL (2.5-16.5); MEAN CORPUSCULAR HEMOGLOBIN 31 pg (27-31); MEAN CORPUSCULAR HGB CONC 33 g/dL (33-37); MEAN CORPUSCULAR VOLUME 91.8 fL (80-94); MONOCYTES # (AUTO) 0.2 K/uL (0.8-1.0); MONOCYTES % (AUTO) 3.2 % (1.7-9.3); NEUTROPHILS # (AUTO) 6.2 K/uL (1.8-7.7); PLATELET COUNT (AUTO) 149 K/uL (140-450); RED BLOOD CELL COUNT(AUTO) 3.96 MIL/uL (4.20-5.40); RED CELL DISTRIBUTION WIDTH 14.2 % (11.6-13.7); WHITE BLOOD COUNT (AUTO) 6.8 K/uL (4.8-10.8)
[2020-06-07] MEDS ORDERED: AZITHROMYCIN 1,000 MG in DEXTROSE 5% 500 ML IV ONE (22:55)
[2020-06-07] MEDS ORDERED: DEXAMETHASONE 10 MG/ML VIAL IVP ONE (22:55)
[2020-06-07 23:09] LABS: PROTHROMBIN TIME 9.3 secs (10.8-13.4)
[2020-06-07 23:30] LABS: NEUTROPHILS % (AUTO) 90.3 % (42.2-75.2)
[2020-06-07 23:32] LABS: ALBUMIN 3.2 g/dL (3.4-5.0); ASPARTATE AMINOTRANSFERASE 25 U/L (15-37); CARBON DIOXIDE 25.5 mmol/L (21-32); CHLORIDE 99 mmol/L (98-107); CREATININE 1.1 mg/dL (0.6-1.3); GLUCOSE 357 mg/dL (74-106); POTASSIUM 4.5 mmol/L (3.5-5.1); SODIUM SERUM 135 mmol/L (136-145); TOTAL BILIRUBIN 0.4 mg/dL (0.0-1.0); UREA NITROGEN, BLOOD 38 mg/dL (7-18)
[2020-06-07 23:52] LABS: LACTATE DEHYDROGENASE 293 U/L (81-234); LIPASE 464 U/L (73-393)
[2020-06-07 23:59] LABS: C-REACTIVE PROTEIN QUANT 11.4 mg/dL (0.0-0.9)
--- NOTE | 2020-06-08 00:05 | NUR ---
PT LAYING IN BED IN NO ACUTE DISTRESS NOTED, VSS. NO C/O NAUSEA OR VOMITING AT THIS TIME. RESPIRATIONS EVEN AND UNLABORED EVIDENCE BY RISE AND FALL OF CHEST WALL. CONTINUES ON CARDIAC MONITORING, BP MONITORING AND PULSE OXIMETRY. BED LOCKED AND IN LOWEST POSITION.
[2020-06-08] MEDS ORDERED: DEXAMETHASONE 10 MG/ML VIAL ONE (00:14)
[2020-06-08 00:24] LABS: RSV NEGATIVE (NEGATIVE)
--- NOTE | 2020-06-08 01:00 | NUR ---
PT UNABLE TO PROVIDE URINE AT THIS TIME. RECEIVED VERBAL ORDER FOR STRAIGHT CATH AT THIS TIME.
[2020-06-08 01:46] LABS: APPEARANCE,URINE CLEAR (CLEAR); BILIRUBIN,URINE NEGATIVE (NEGATIVE); BLOOD, URINE 2+ (NEGATIVE); COLOR,URINE YELLOW (YELLOW); LEUKOCYTE ESTERASE ,URINE NEGATIVE (NEGATIVE); NITRITE, URINE NEGATIVE (NEGATIVE); PH,URINE 8.5 (5.0-9.0); UGLUCOSE 2+ (NEGATIVE)
[2020-06-08 02:14] LABS: RBC,URINE 11-20 (MOD) /HPF (0-5); WBC,URINE 0-5 /HPF (0-5)
[2020-06-08 02:16] LABS: TRIPLE PHOSPHATE CRYSTAL,UR 0-10 /HPF (None Seen)
[2020-06-08 02:25] VITALS: BP 141/57
--- NOTE | 2020-06-08 02:25 | NUR ---
Patient discharged with v/s stable. Written and verbal after care instructions given and explained. Patient alert, oriented and verbalized understanding of instructions. Wheel Chair Assisted with to car. All questions addressed prior to discharge. ID band removed. Patient advised to follow up with PMD. Rx of IVERMECTIN, PREDNISONE, ZINC, AZITHROMYCIN, VIT D3, ZOFRAN ODT, & VIT C given. Patient educated on indication of medication including possible reaction and side effects. Opportunity to ask questions provided and answered. IV removed, catheter intact and site benign. Applied folded 4x4 gauze and tape to stop bleeding.
--- NOTE | 2020-06-13 00:54 | NUR ---
Positive COVID-19 test results were received from lab. A copy of the test results were given to Infection Control.
== END 2020-06-08 02:25 | disposition home or self-care (01) ==
LOC: MED 21:15
DX: U07.1 COVID-19 (principal); J12.89 Other viral pneumonia; R11.2 Nausea with vomiting, unspecified; E11.9 Type 2 diabetes mellitus without complications; J45.909 Unspecified asthma, uncomplicated; F03.90 Unspecified dementia, unspecified severity, without behavioral disturbance, psychotic disturbance, mood disturbance, and anxiety; I10 Essential (primary) hypertension; Z79.899 Other long term (current) drug therapy; Z79.82 Long term (current) use of aspirin; Z88.5 Allergy status to narcotic agent; Z90.49 Acquired absence of other specified parts of digestive tract
CPT/HCPCS: 36415; 71045; 74176; 80053; 81001; 82550; 82728; 83605; 83615; 83690; 83880; 84484; 85025; 85379; 85384; 85610; 85730; 86140; 87040; 87086; 87420; 87426; 87804; 93005; 96365; 96366; 96375; 99291; C9113; J1100; J2405; U0003

== ENCOUNTER 2020-09-20 20:45 | Emergency (ER) | payer MEDICARE, OTHER, SELFPAY ==
[~2020-09-20] VITALS: Ht 149.9 cm; Wt 63.5 kg
[~2020-09-20 20:45] MED LIST changes: +INSU100S22 SUBQ; +INSU100S45 SUBQ; +LEVO500T98 PO; +ROB PO; -SITA50TA3 PO; +VITD400 PO
[2020-09-20 20:49] VITALS: BP 181/61
--- NOTE | 2020-09-20 20:49 | NUR ---
TO B ED VIA WHEELCHAIR
[2020-09-20] MEDS ORDERED: ACETAMINOPHEN 325 MG TAB PO ONE (21:40)
--- NOTE | 2020-09-20 21:48 | NUR ---
LAB AT BEDSIDE
--- NOTE | 2020-09-20 22:00 | NUR ---
85 Y/O F BIB DAUGHTER FROM HOME, PT C/O BACK PAIN THAT STARTED TODAY, STATES SHE HAS NO HX OF FALLS, BUT HX OF UTI. STATES PAIN IS LOWER R FLANK PAIN. DENIES BURNING OR PAINFUL URINATION. NO FEVER. PMH: URINE INFECTIONS, HTN, DM2 ALLERGY: CODEINE
[2020-09-20 22:01] LABS: BASOPHILS # (AUTO) 0.1 K/uL (0.00-0.22); BASOPHILS % (AUTO) 0.7 % (0.0-2.0); EOSINOPHILS # (AUTO) 0.3 K/uL (0-0.4); EOSINOPHILS % (AUTO) 4.1 % (0.0-4.0); HEMATOCRIT 32.7 % (36-48); HEMOGLOBIN 10.9 g/dL (12.0-16.0); LYMPHOCYTES # (AUTO) 1.6 K/uL (2.5-16.5); LYMPHOCYTES % (AUTO) 22.8 % (20.5-51.1); MEAN CORPUSCULAR HEMOGLOBIN 31 pg (27-31); MEAN CORPUSCULAR HGB CONC 33 g/dL (33-37); MEAN CORPUSCULAR VOLUME 94.3 fL (80-94); MONOCYTES # (AUTO) 0.6 K/uL (0.8-1.0); MONOCYTES % (AUTO) 8.5 % (1.7-9.3); NEUTROPHILS # (AUTO) 4.6 K/uL (1.8-7.7); NEUTROPHILS % (AUTO) 63.9 % (42.2-75.2); PLATELET COUNT (AUTO) 174 K/uL (140-450); RED BLOOD CELL COUNT(AUTO) 3.47 MIL/uL (4.20-5.40); RED CELL DISTRIBUTION WIDTH 13.9 % (11.6-13.7); WHITE BLOOD COUNT (AUTO) 7.2 K/uL (4.8-10.8)
--- NOTE | 2020-09-20 22:19 | NUR ---
STRAIGHT CATH 400ML OF URINE OBTAINED DURING CATH. SENT AROUND 20ML OF URINE SAMPLE WITH MARYANNE MCDOWELL
[2020-09-20 22:20] LABS: ALBUMIN 3.5 g/dL (3.4-5.0); ANION GAP 14.2 (8-16); ASPARTATE AMINOTRANSFERASE 12 U/L (15-37); CARBON DIOXIDE 27.2 mmol/L (21-32); CHLORIDE 105 mmol/L (98-107); CREATININE 1.5 mg/dL (0.6-1.3); GLUCOSE 218 mg/dL (74-106); POTASSIUM 4.4 mmol/L (3.5-5.1); SODIUM SERUM 142 mmol/L (136-145); TOTAL BILIRUBIN 0.3 mg/dL (0.0-1.0); UREA NITROGEN, BLOOD 37 mg/dL (7-18)
[2020-09-20 22:21] LABS: APPEARANCE,URINE CLEAR (CLEAR); BILIRUBIN,URINE NEGATIVE (NEGATIVE); BLOOD, URINE NEGATIVE (NEGATIVE); COLOR,URINE YELLOW (YELLOW); LEUKOCYTE ESTERASE ,URINE NEGATIVE (NEGATIVE); NITRITE, URINE NEGATIVE (NEGATIVE); PH,URINE 5.5 (5.0-9.0); UGLUCOSE NEGATIVE (NEGATIVE)
[2020-09-20] MEDS ORDERED: ACET-2619 PO (23:05)
[2020-09-21 00:17] VITALS: BP 181/61
== END 2020-09-21 00:17 | disposition home or self-care (01) ==
LOC: MED 20:45
DX: N28.9 Disorder of kidney and ureter, unspecified (principal); E78.00 Pure hypercholesterolemia, unspecified; E11.65 Type 2 diabetes mellitus with hyperglycemia; F03.90 Unspecified dementia, unspecified severity, without behavioral disturbance, psychotic disturbance, mood disturbance, and anxiety; I10 Essential (primary) hypertension; Z88.5 Allergy status to narcotic agent; Z79.899 Other long term (current) drug therapy
CPT/HCPCS: 36415; 80053; 81003; 85025; 87040; 87086; 99283; C1758